=== PATIENT | female | born 1975 | race Caucasian/White ===

== ENCOUNTER 2021-12-08 15:04 | Outpatient (CLI) | payer BC, SELFPAY ==
--- NOTE | 2021-12-08 15:20 | CRLHL7_ITS ---
For Patients: As a result of the Century Cures Act, medical imaging exams and procedure reports are released immediately into your electronic medical record. You may view this report before your referring provider. If you have questions, please contact your health care provider. BILATERAL MAMMOGRAM WITH COMPUTER-AIDED DETECTION AND TOMOSYNTHESIS TECHNIQUE: CC and MLO views were obtained. These mammographic images have been obtained using full-field digital technique. These mammographic images were interpreted with the benefit of computer-aided detection. Breast Tomosynthesis was used in this interpretation. COMPARISON FILM: 10/08/2020, 11/09/2018. FINDINGS: The breasts are heterogeneously dense, which may obscure small masses IMPRESSION: There is no radiographic evidence for malignancy. ASSESSMENT: BI-RADS Category 1: Negative RECOMMENDATION: Routine screening mammogram in 1 year. A lay language report of this examination will be provided to the patient. Dominic Yoo M.D. Diagnostic Radiologist [email or web address] LEANDER/Dictated by: Dominic Yoo MD @ 12/09/2021 8:48:00 AM (Electronically Signed)
== END 2021-12-08 15:05 | disposition home or self-care (01) ==
LOC: MAMMO 15:07
PROVIDERS: Visit Provider Family Medicine
DX: Z12.31 Encounter for screening mammogram for malignant neoplasm of breast (principal); R92.2 Inconclusive mammogram
CPT/HCPCS: 77063; 77067

== ENCOUNTER 2022-04-30 08:13 | Outpatient (CLI) | payer BC, SELFPAY ==
--- OUTSIDE RECORDS SUMMARY | 2022-04-30 08:16 | XMS_ITS | Clinical Summary ---
:1975 Author Organization [facility] [place] [address] Care Team Providers Name Role Phone Pcp, No Primary Care Provider Unavailable Allergies Not on File Medications Not on file Active Problems Not on file Social History Tobacco Use Types Packs/Day Years Used Date Never Assessed Sex Assigned at Date Recorded Not on file Plan of Treatment Not on file Results Not on filefrom Last 3 Months Insurance Payer Benefit Plan / Subscriber ID Effective Dates Phone Addre ss Type Group BLUE CROSS BLUE CROSS OF [id number] 2012-Present [address] [address] [place] [address] PREFERRED ONE PREFERRED [id number] Effective for [address] [place] [address] [employer] Employer ATTN [employer] (Home) [address] [place], [place] [address] Care Teams Color Control Operator Relationship Specialty Start Date End Date Pcp, No PCP - General 01/16/10 .
--- OUTSIDE RECORDS SUMMARY | 2022-04-30 08:16 | XMS_ITS | Encounter Summary ---
:1975 Author Organization [facility] Address [address] [place] [address] Care Team Providers Name Role Phone Unavailable Primary Care Provider Unavailable Reason for Visit Reason Onset Date Comments Patient Request 02/22/2008 question Infertililty 02/22/2008 Encounter Details Date Type Department Care Team Description 02/22/2008 Telephone [facility] Richard Thomson, Patient Request [facility] (question); Infertililty [address] 131 [address] [place] [address] [phone] Social History Tobacco Use Types Packs/Day Years Used Date Smoking Tobacco: Never Assessed Sex Assigned at Date Recorded Not on file documented as of this encounter Miscellaneous Notes Telephone Encounter - Richard Thomson - 02/23/2008 11:48 AM CDT I spoke w the pt. She [facility] and has resolved her concerns. RICHARD THOMSON MD Telephone Encounter - Pat Quiñones - 02/22/2008 4:30 PM CDT Pt is currently udergoing IVF and is on clomid. Pt wanting to know if MD would monitor for this month as pt not happy with infertinily clinic in large mess with billing. Pt would likeot know if willmonitor for this cycle. Pt states she has not seen here yet and records have not been transferred from [facility] yet. Please advise. Pat Quiñones RN documented in this encounter Plan of Treatment Not on filedocumented as of this encounter Visit Diagnoses Not on filedocumented in this encounter
--- OUTSIDE RECORDS SUMMARY | 2022-04-30 08:16 | XMS_ITS | Encounter Summary ---
:1975 Author Organization [place] Address [address] [place] [address]. [place] [address] Care Team Providers Name Role Phone [facility] Primary Care Provide r Encounter Details Date Type Department Care Team Description 12/09/2021 Travel Social History Tobacco Use Types Packs/Day Years Used Date Smoking Tobacco: Never Smokeless Tobacco: Never Sex Assigned at Date Recorded Not on file COVID-19 Exposure Response Date Recorded In the last 10 days, have you been in contact with No / Unsu re 12/09/2021 2:03 PM CDT someone who was confirmed or suspected to have Coronavirus/COVID-19? documented as of this encounter Plan of Treatment Not on filedocumented as of this encounter Visit Diagnoses Not on filedocumented in this encounter Additional Health Concerns Assessment Noted Time PHQ-9 Depression Total Score: 6 12/09/2021 2:49 PM CDT documented as of this encounter Care Teams Lab Intern Relationship Specialty Start Date End Date [facility], [facility] Karen PCP - General 12/09/[address] [facility] [facility] [address] [phone] documented as of this encounter
--- OUTSIDE RECORDS SUMMARY | 2022-04-30 08:16 | XMS_ITS | Clinical Summary ---
:1975 Author Organization [place] Address [address] [place] [address] Care Team Providers Name Role Phone [facility], [facility] [place] Primary Care Provide r Svetlana Morin MD Unavailable Allergies No known active allergies Medications Medication Sig Dispensed Refills Start Date End Date Status losartan (COZAAR) 25 MG Take 50 mg by 0 Active tabletIndications: mouth daily Hypertension hydrochlorothiazide Take 12.5 mg 0 Active (MICROZIDE) 12.5 MG capsule by mouth daily Active Problems No known active problems Immunizations Name Administration Dates Next Due COVID-19 Vaccine 12+ (Pfizer) 05/27/2021 Influenza (intradermal) 05/14/2021 Tdap (Adult) Unspecified Formulation 10/03/2014 Family History Medical History Relation Comments Hypertension Father Hypertension Mother Thyroid Disease Sister Relation Status Comments Father Mother Sister Social History Tobacco Use Types Packs/Day Years Used Date Smoking Tobacco: Never Smokeless Tobacco: Never Sex Assigned at Date Recorded Not on file Last Filed Vital Signs Vital Sign Reading Time Taken Comments Blood Pressure 128/96 12/09/2021 2:09 PM CDT Pulse - - Temperature - - Respiratory Rate - - Oxygen Saturation - - Inhaled Oxygen Concentration - - Weight 88.4 kg (194 lb 12.8 oz) 12/09/2021 2:09 PM CDT Height 177.8 cm (5' 10) 12/09/2021 2:09 PM CDT Body Mass Index 27.95 12/09/2021 2:09 PM CDT Plan of Treatment Health Maintenance Due Date Last Done Comments ADVANCE CARE PLANNING 1975 ANNUAL REVIEW OF HM ORDERS 1974 CT COLONOGRAPHY 1975 FIT 1975 FLEX SIG 1975 HEPATITIS B IMMUNIZATION (1 1974 of 3 - 3-dose series) COLONOSCOPY 1984 HIV SCREENING 1989 HEPATITIS C SCREENING 1992 LIPID 09/17/2019 COVID-19 Vaccine (3 - 07/22/2021 05/27/2021, 08/23/2020 Booster for Millie series) MAMMO SCREENING 10/08/2021 10/08/2020 INFLUENZA VACCINE (#1) 2022 05/14/2021, 05/14/2021, 03/07/2020, Additional history exists YEARLY PREVENTIVE VISIT 12/09/2022 12/09/2021 HPV TEST 06/08/2024 06/08/2019 PAP 06/08/2024 06/08/2019, 06/08/2019 DTAP/TDAP/TD IMMUNIZATION 10/03/2024 10/03/2014, 10/03/2014 , (3 - Td or Tdap) 04/05/2012 COLORECTAL CANCER SCREENING 01/05/2025 FIT-DNA (Cologuard) 01/05/2025 01/05/2022 PHQ-2 (once per calendar Completed 12/09/2021, 12/09/2021 year) IPV IMMUNIZATION Aged Out No longer eligi ble based on patient 's age to complete this topic MENINGITIS IMMUNIZATION Aged Out No longe r eligible based on patient 's age to complete this topic Pneumococcal Vaccine: Aged Out No longer eligible Pediatrics (0 to 5 Years) based on patient's age and At-Risk Patients (6 to to co mplete this topic 64 Years) Insurance Payer Benefit Plan / Subscriber ID Effective Dates Phone Addre ss Type Group BCBS [place] [id number] 2012-Present [phone] [address] [address] [place] [address] Care Teams Ancient Art Curator Relationship Specialty Start Date End Date Clinic, [facility] - General 12/09/21 Women [place] [address] [address] [phone] Svetlana Morin MD Assigned OBGYN Provider 12/13/21 [address] [facility] [address] [place] [phone]
--- OUTSIDE RECORDS SUMMARY | 2022-04-30 08:16 | XMS_ITS | Encounter Summary ---
:1975 Author Organization [place] Address [address] [place] [address]. [place] [address] Care Team Providers Name Role Phone [facility], [facility] [place] Primary Care Provide r Reason for Visit Reason Comments Physical Encounter Details Date Type Department Care Team Description 12/09/2021 Office Visit [facility] Svetlana Morin MD Encounter for well woman exam with jimy riggs gynecological exam (Primary Dx); [facility] [address] [facility] Screen for colon cancer [place] [phone] [place] [address] [address] (Work) [place] [address] Social History Tobacco Use Types Packs/Day Years Used Date Smoking Tobacco: Never Smokeless Tobacco: Never Sex Assigned at Date Recorded Not on file COVID-19 Exposure Response Date Recorded In the last 10 days, have you been in contact with No / Unsu re 12/09/2021 2:03 PM CDT someone who was confirmed or suspected to have Coronavirus/COVID-19? documented as of this encounter Last Filed Vital Signs Vital Sign Reading [...] Mass Index 27.95 12/09/2021 2:09 PM CDT documented in this encounter Progress Notes Svetlana Morin MD - 12/09/2021 2:15 PM CDT Terri is a 46 year old No obstetric history on file. female who presents for annual exam. Besides routine health maintenance, she has no other health concerns today . HPI: The [facility] She has no concerns today. GYNECOLOGIC HISTORY: Patient's last menstrual period was 11/27/2021 (exact date). Regular menses? yes Menses every 23-28 days. Length of menses: 3 -5 days Her current contraception method is: vasectomy. She reports that she has never smoked. She has never used smokeless tobacco. Patient is sexually active. STD testing offered? Declined Last PHQ-9 score on record = PHQ-9 SCORE 12/09/2021 PHQ-9 Total Score 6 Last GAD7 score on record = DALE-7 SCORE 12/09/2021 Total Score 8 Alcohol Score = 1 HEALTH MAINTENANCE: Cholesterol: January 2021 Last Mammo: 12/09/21, Result: waiting resultsl, Next Mammo: next 2022 Pap:3 yrs ago NILM Colonoscopy: Has not had one Result: Not applicable, Next Colonoscopy: Due at 44 years. Dexa: N/A Health maintenance updated: yes HISTORY: OB History No obstetric history on file. There is no problem list on file for this patient. No past surgical history on file. Social History Tobacco Use ??? Smoking status: Never Smoker ??? Smokeless tobacco: Never Used Substance Use Topics ??? Alcohol use: Not on file Current Outpatient Medications Medication Sig ??? hydrochlorothiazide (MICROZIDE) 12.5 MG capsule Take 12.5 mg by mouth daily ??? losartan (COZAAR) 25 MG tablet Take 50 mg by mouth daily No current facility-administered medications for this visit. No Known Allergies Past medical, surgical, social and family histories were reviewed and updated in [employer]. ROS: 12 point review of systems negative other than symptoms noted below or in the HPI. No urinary frequency or dysuria, bladder or kidney problems EXAM: BP (!) 128/96 Ht 1.778 m (5' 10) Wt 88.4 kg (194 lb 12.8 oz) LMP 11/27/2021 (Exact Date) No BMI 27.95 kg/m?? BMI: Body mass index is 27.95 kg/m??. PHYSICAL EXAM: Constitutional: Appearance: Well nourished, well developed, alert, in no acute distress Neck: Lymph Nodes: No lymphadenopathy present Thyroid: Gland size normal, nontender, no nodules or masses present on palpation Chest: Respiratory Effort: Breathing unlabored Cardiovascular: Heart: Auscultation: Regular rate, normal rhythm, no murmurs present Breasts: Palpation of Breasts and Axillae: No masses present on palpation, no breast tenderness., Axillary Lymph Nodes: No lymphadenopathy present. and No nodularity, asymmetry or nipple discharge bilaterally. Gastrointestinal: Abdominal Examination: Abdomen nontender to palpation, tone normal without rigidity or guarding, nomasses present, umbilicus without lesions Liver and Spleen: No hepatomegaly present, liver nontender to palpation Hernias: No hernias present Lymphatic: Lymph Nodes: No other lymphadenopathy present Skin: General Inspection: No rashes present, no lesions present, no areas of discoloration Neurologic: Mental Status: Oriented X3. Normal strength and tone, sensory exam grossly normal, mentation intact and speech normal. Psychiatric: Mentation appears normal and affect normal/bright. Pelvic Exam: External Genitalia: Normal appearance for age, no discharge present, no tenderness present, no inflammatory lesions present, color normal Vagina: Normal vaginal vault without central or paravaginal defects, no discharge present, no inflammatory lesions present, no masses present Bladder: Nontender to palpation Urethra: Urethral Body: Urethra palpation normal, urethra structural support normal Urethral Meatus: No erythema or lesions present Cervix: Appearance healthy, no lesions present, nontender to palpation, no bleeding present Uterus: Uterus: firm, normal sized and nontender, midplane in position. Adnexa: No adnexal tenderness present, no adnexal masses present Perineum: Perineum within normal limits, no evidence of trauma, no rashes or skin lesions present Anus: Anus within normal limits, no hemorrhoids present Inguinal Lymph Nodes: No lymphadenopathy present Pubic Hair: Normal pubic hair distribution for age Genitalia and Groin: No rashes present, no lesions present, no areas of discoloration, no masses present COUNSELING: Reviewed preventive health counseling, as reflected in patient instructions Special attention given to: Regular exercise Healthy diet/nutrition (Jazlyn)menopause management Colon Cancer screening BMI: Body mass index is 27.95 kg/m??. Weight management plan: Discussed healthy diet and exercise guidelines ASSESSMENT: 46 year old female with satisfactory annual exam. ICD-10-CM 1. Encounter for well woman exam with routine gynecological exam Z01.419 2. Screen for colon cancer Z12.11 COLOGUARD(EXACT SCIENCES) PLAN: -Patient has signed [facility] from [facility] to obtain past labs and pap results. -Cologuard ordered for colon cancer screening -Mammogram yesterday. Plan follow-up in 1 year for annual or sooner prn. Sevtlana Morin MD documented in this encounter Plan of Treatment Not on filedocumented as of this encounter Procedures Procedure Name Priority Date/Time Associated Diagnosis Comme nts COLOGUARD(EXACT Routine 01/05/2022 7:55 AM Screen for colon Re sults for this SCIENCES) CDT cancer procedure are i n the results section. documented in this encounter Results COLOGUARD(EXACT SCIENCES) (01/05/2022 7:55 AM CDT) [facility] gist Method Time Signature COLOGUARD-ABS Negative Negative 01/10/2022 EXACT SCIENCES TRACT 3:53 AM CDT LABORATORIES (CLIA #:[id number]) Comment: NEGATIVE TEST RESULT. A negative Cologua rd result indicates a low likelihood that a colorectal cancer (CRC) or advanced adenoma (adenomatous polyps with more advanced pre-malignant features) ??is presen t. The chance that a person with a negat radha Cologuard test has a colorectal cancer is less than 1 in 1500 (negative predictive value >99.9%) or has an ??advanced adenoma is less than ??5.3% (negative predictive value 94.7%). These data are based on a prospective cross-sectional study of 10,000 individuals at average risk for colorectal cancer who were screened with both Cologuard and colonoscopy. ( Vale Leon al, N Engl J Med 2014;37 0(14):6264-6947) The normal value (reference range) for this assay is negative. COLOGUARD RE-SCREENING RECOMMENDATION: P eriodic colorectal cancer screening is an important part of preventive healthcare for asymptomatic individuals at average risk for colorectal cancer. ??Following a negative Cologuard result, the [place] n Cancer Society and U.S. Multi-Society Task Force screening guidelines recommend a Cologuard re-screening interval of 3 years. References: [place] Cancer Society Zoila dias for Colorectal Cancer Screening: https://www.cancer.org/cancer/zyuqr-egvrzw-whmbmq/cgseszuvf-piojbuxix-kskjgto/sakina MONTEMAYOR, Josefina PAZ, Daryl MOON, Colorectal Cancer Screenin g: Recommendations for Physicians and Patients from the U.S. Multi-Society Task Force on Colorectal Cancer Screening , Am J Gastroenterology 2017; 112:0895-0127. TEST DESCRIPTION: Composite algorithmic analysis of stool DNA-biomarkers with hemoglobin immunoassay. ?? Quantitative values of individual biomarkers are not reportable and are not associated with indiv idual biomarker result reference ranges. Cologuard is intended for colorectal cancer screening of adults of either sex, 45 years or older, who are at average- risk for colorectal cancer (CRC). Cologuard has been approved for use by the U.S. FD A. The performance of Cologuard was established in a cross sectional study of average-risk adults aged 50-84. Cologuard performance in patients ages 45 to 49 year s was estimated by sub-group analysis of near-age groups. Colonoscopies performed for a positive result may find as the most clinically significant lesion: colorectal cancer [4.0%], advanced adenoma (in cluding sessile serrated polyps greater than or equal to 1cm diameter) [20%] or non- advanced adenoma [31%]; or no colorectal neoplasia [45%]. These estimates are derived from a prospective cross-sectio nal screening study of 10,000 individual s at average risk for colorectal cancer who were screened with both Cologuard and colonoscopy. (Vale Leon al, N Engl J Med 2014;370(14):0627-6318.) Cologuar d may produce a false negative or false positive result (no colorectal cancer or precancerous polyp present at colonoscopy follow up). A negative Cologuard test result does not guarantee the absence of CRC or advanced adenoma (pre-cancer). Th e current Cologuard screening interval is every 3 years. ([place] Cancer Society and U.S. Multi-Society Task Force). Cologuard performance data in a 10,000 patie nt pivotal study using colonoscopy as th e reference method can be accessed at the following location: www.exactZenCard.[employer]/results. Additional description of the Cologuard test process, warnings and precautions can be found at www.colNethubrd.com. Specimen Anatomical Collection Method Collection Time Receive d Time (Source) Location / / Volume Laterality Stool specimen 01/05/2022 7:55 AM 022 2:47 (specimen) CDT PM CDT Svetlana Morin MD LABORATORY Performing Organization Address City/State/[facility] Code Phon e Number [facility] [address] [place] [address] [employer] (CLIA [address] [place] [address] #:[id number]) documented in this encounter Visit Diagnoses Diagnosis Encounter for well woman exam with jimy riggs gynecological exam - Primary Screen for colon cancer Special screening for malignant neoplasm s, colon documented in this encounter Additional Health Concerns Assessment Noted Time PHQ-9 Depression Total Score: 6 12/09/2021 2:49 PM CDT documented as of this encounter Care Teams Mirror Finishing Machine Operator Relationship Specialty Start Date End Date Clinic, [facility] Karen PCP - General 12/09/21 [place] [address] [address] [phone] documented as of this encounter
[2022-04-30 15:39] LABS: TSH With Reflex to FT4* 0.756 uIU/mL (0.270-4.200)
[2022-04-30 15:56] LABS: Hepatitis C Virus Antibody* Negative (Negative)
[2022-04-30 16:12] LABS: Albumin* 4.4 g/dL (3.3-5.0); Chloride* 103 mmol/L (96-114)
[2022-04-30 16:13] LABS: Potassium* 3.8 mmol/L (3.6-5.1); Sodium* 139 mmol/L (135-149)
[2022-04-30 16:15] LABS: Aspartate Amino Transferase* 34 U/L (12-35); Bilirubin Total* 0.7 mg/dL (0.1-1.5); Carbon Dioxide* 29 mmol/L (20-32); Cholesterol* 212 mg/dL (90-199); Total Protein* 7.2 g/dL (6.0-8.3)
[2022-04-30 16:16] LABS: Alanine Aminotransferase* 37 U/L (4-35); Alkaline Phosphatase* 60 U/L (40-150); Blood Urea Nitrogen* 17 mg/dL (5-24); Calcium* 9.3 mg/dL (8.4-10.6); Glucose* 111 mg/dL (60-115); HDL Cholesterol* 52 mg/dL (>=50); LDL Cholesterol Calculated 132 mg/dL (<100); Triglycerides* 139 mg/dL (40-149)
[2022-04-30 16:25] LABS: Creatinine* 0.8 mg/dL (0.5-1.5); Estimated Glomerular Filt Rate 91 ml/min
== END 2022-04-30 08:14 | disposition home or self-care (01) ==
PROVIDERS: PCP Family Medicine; Visit Provider Family Medicine
DX: Z00.00 Encounter for general adult medical examination without abnormal findings (principal); I10 Essential (primary) hypertension; R73.03 Prediabetes; Z13.6 Encounter for screening for cardiovascular disorders; Z11.59 Encounter for screening for other viral diseases; Z83.49 Family history of other endocrine, nutritional and metabolic diseases
CPT/HCPCS: 80053; 80061; 84443; 86803

== ENCOUNTER 2023-05-20 16:20 | Outpatient (CLI) | payer BC, SELFPAY | END 2023-05-20 16:21 | disposition home or self-care (01) | PROVIDERS: PCP Family Medicine; Visit Provider Family Medicine | DX: I10 Essential (primary) hypertension (principal); E28.2 Polycystic ovarian syndrome; N92.0 Excessive and frequent menstruation with regular cycle | CPT/HCPCS: 80053; 80061; 82043; 82570; 84156 ==

== ENCOUNTER 2024-02-09 14:45 | Outpatient (CLI) | payer BC, SELFPAY ==
--- OUTSIDE RECORDS SUMMARY | 2024-02-09 14:47 | XMS_ITS | Clinical Summary ---
Author Organization [place] Address [address] [place] [id number] Care Team Providers Care Passenger Booking Clerk Name Role Phone Svetlana Morin MD Unavailable No Ref-Primary, Physician Primary Care Provider [facility] Unavailabl e Allergies No known active allergies Medications Medication Sig Dispensed Refills Start Date End Date Status losartan (COZAAR) 25 MG tabletIndications: Hypertension Take 50 mg by mouth daily Active hydrochlorothiazid e (MICROZIDE) 12.5 MG capsule Take 12.5 mg by mouth daily Active triamcinolone (NASACORT) 55 MCG/ACT nasal aerosol [place] 2 sprays into both nostrils daily Active ibuprofen (ADVIL/MOTRIN) 800 MG tabletIndications: S/P D&C (status post dilation and curettage) Take 1 tablet (800 mg) by mouth every 6 hours as needed for other (mild and/or inflammatory pain) 30 tablet 03/25/2023 Active acetaminophen (TYLENOL) 325 MG tabletIndications: S/P D&C (status post dilation and curettage) Take 3 tablets (975 mg) by mouth every 6 hours as needed for mild pain 50 tablet 03/25/2023 Active Active Problems No known active problems Immunizations Name Administration Dates Next Due COVID-19 MONOVALENT 12+ (Pfizer) 01/06/2022,05/01 Influenza (intradermal) 05/14/2021 Influenza Vaccine >6 months,quad, PF ,05/14/2021,03/07/2020,2018,04/19/2018,04/28/2017,05/13/2016,1 TDAP (Adacel,Boostrix) 10/03/2014,04/05/2012 Tdap (Adult) Unspecified Formulation 10/03/2014 Family History Medical History Relation Comments Hypertension Father Hypertension Mother Thyroid Disease Sister Relation Status Comments Father Mother Sister Social History Tobacco Use Types Packs/Day Years Used Date Smoking Tobacco: Never Smokeless Tobacco: Never Tobacco Cessation:Counseling Given: Not Answered Alcohol Use Standard Drinks/Week Comments Yes 0 (1 standard drink = 0.6 oz pur e alcohol) rarely PHQ-2 Answer Date Recorded PHQ-2 Score 1 02/03/2023 Adolescent Education Answer Date Record ed Getting School Help Needed Not on file 02/26 Sex and Gender Information Value Date Recorded Sex Assigned at Not on file Gender Identity Not on file Sexual Orientation Not on file Last Filed Vital Signs Vital Sign Reading Time Taken Comments Blood Pressure 147/95 03/25/2023 11:30 AM CDT Pulse 98 03/25/2023 11:30 AM CDT Temperature 37 ??C (98.6 ??F) 03/25/2023 10:45 AM CDT Respiratory Rate 16 03/25/2023 11:30 AM CDT Oxygen Saturation 94% 03/25/2023 11:30 AM CDT Inhaled Oxygen Concentration - - Weight 92.2 kg (203 lb 4.8 oz) 03/25/2023 7:55 A M CDT Height 177.8 cm (5' 10) 03/25/2023 7:55 AM CDT Body Mass Index 29.17 03/25/2023 7:55 AM CDT Plan of Treatment Health Maintenance Due Date Last Done Comments ADVANCE CARE PLANNING 1974 CT COLONOGRAPHY 1974 FIT 1974 FLEX SIG 1974 GLUCOSE 1974 COLONOSCOPY 1984 HIV SCREENING 1989 HEPATITIS C SCREENING 1992 HEPATITIS B IMMUNIZATION (1 of 3 - 19+ 3-dose series) 1993 LIPID 2014 PHQ-2 (once per calendar year) 2023 02/03/2023, 02/03/2023, 07/10/2022, Additional history exists ANNUAL REVIEW OF HM ORDERS 07/10/2023 07/10/2022 COVID-19 Vaccine ( season) 2024 01/06/2022, 05/27/2021, 08/23/2020 INFLUENZA VACCINE (#1) 2024 2, 05/14/2021, 05/14/2021, Additional history exists YEARLY PREVENTIVE VISIT 02/04/2024 02/03/2023, 12/09 HPV TEST 06/08/2024 06/08/2019, 06/08/2019 PAP 06/08/2024 06/08/2019, 01/2020, 06/08/2019, Additional history exists ZOSTER IMMUNIZATION (1 of 2) 2024 DTAP/TDAP/TD IMMUNIZATION (4 - Td or Tdap) 10/03/2024 10/03/2014, 10/03/2014, 04/05/2012 COLORECTAL CANCER SCREENING 01/05/2025 sDNA (Cologuard) 01/05/2025 01/05/2022, 01/05/2022 MAMMO SCREENING 02/03/2025 02/03/2023, 10/0 05/2021, 10/08/2020 HPV IMMUNIZATION Aged Out No longer e ligible based on patient's age to complete this topic MENINGITIS IMMUNIZATION Aged Out No l onger eligible based on patient's age to complete this topic Pneumococcal Vaccine: Pediatrics (0 to 5 Years) and At-Risk Patients (6 to 64 Years) Aged Out No longer eligible based on patient's age to complete this topic RSV MONOCLONAL ANTIBODY Aged Out No l onger eligible based on patient's age to complete this topic Procedures Procedure Name Priority Date/Time Associated Diagnosis Comments MA SCREENING BILATERAL W/ VIRGILIO Routine 02/03/2023 9:20 AM CDT Visit for screening mammogram COLOGUARD(Airseed SCIENCES) Routine 01/05/2022 7:55 AM CDT Screen for colon cancer ABSTRACT PAP ([facility] EXTERNAL RESULT) Routine 06/08/2019 8:30 AM CUFF FOLDER ABSTRACT HPV (HIM EXTERNAL RESULT) Routine 06/08/2019 8:30 AM CUFF FOLDER from Last 3 Months or Most Recently Relevant to Health Maintenance Results * MA Screen Bilateral w/Virgilio (02/03/2023 9:20 AM CDT) Anatomical Region Laterality Modality Breast Bilateral Mammography Impressions 02/11/2023 11:42 AM CDT IMPRESSION: ACR BI-RADS Category 1: Negative RECOMMENDED FOLLOW-UP: Annual routine screening mammogram The results and recommendations of this examination will be communicated to the patient. Kash Rodrigues MD Narrative 02/11/2023 11:42 AM CDT BILATERAL FULL FIELD DIGITAL SCREENING MAMMOGRAM WITH TOMOSYNTHESIS Performed on: 02/03/23 Compared to: 12/08/2021 and 11/09/2018 Technique: ??This study was evaluated with the assistance of Computer-Aided Detection. ??Breast Tomosynthesis was used in interpretation. Findings: The breasts are heterogeneously dense, which may obscure small masses. ??There is no radiographic evidence of malignancy. Svetlana Morin MD IMG MAMMOGRAPHY [place]AN * COLOGUARD(Radialpoint) (01/05/2022 7:55 AM CDT) COLOGUARD-ABSTRACT Negative Negative 2021 3:53 AM CDT [facility] (CLIA #:[id number]) Comment: NEGATIVE TEST RESULT. A negative Cologuard result indicates a low likelihood that a colorectal cancer (CRC) or advanced adenoma (adenomatous polyps with more advanced pre-malignant features) ??is present. The chance that a person with a negative Cologuard test has a colorectal cancer is less than 1 in 1500 (negative predictive value >99.9%) or has an ??advanced adenoma is less than ??5.3% (negative predictive value 94.7%). These data are based on a prospective cross-sectional study of 10,000 individuals at average risk for colorectal cancer who were screened with both Cologuard and colonoscopy. (Vale Leon al, N Engl J Med 2014;370(14):1286- 1297) The normal value (reference range) for this assay is negative. COLOGUARD RE-SCREENING RECOMMENDATION: Periodic colorectal cancer screening is an important part of preventive healthcare for asymptomatic individuals at average risk for colorectal cancer. ??Following a negative Cologuard result, the [place] Cancer Society and U.S. Multi-Society Task Force screening guidelines recommend a Cologuard re-screening interval of 3 years. References: [place] [employer] Guideline for Colorectal Cancer Screening: https://www.cancer.org/cancer/segip-xzwfmg-efhzqv/vjossumhp-gltnjkfjf-bjwzlfo/ac s-rec ommendations.html.; Sim DK, Josefina PAZ, Daryl MckeonK, Colorectal Cancer Screening: Recommendations for Physicians and Patients from the U.S. Multi-Society Task Force on Colorectal Cancer Screening , Am J Gastroenterology 2017; 112:2635-4315. TEST DESCRIPTION: Composite algorithmic analysis of stool DNA-biomarkers with hemoglobin immunoassay. ?? Quantitative values of individual biomarkers are not reportable and are not associated with individual biomarker result reference ranges. Cologuard is intended for colorectal cancer screening of adults of either sex, 45 years or older, who are at average-risk for colorectal cancer (CRC). Cologuard has been approved for use by the U.S. FDA. The performance of Cologuard was established in a cross sectional study of average-risk adults aged 50-84. Cologuard performance in patients ages 45 to 49 years was estimated by sub-group analysis of near-age groups. Colonoscopies performed for a positive result may find as the most clinically significant lesion: colorectal cancer [4.0%], advanced adenoma (including sessile serrated polyps greater than or equal to 1cm diameter) [20%] or non- advanced adenoma [31%]; or no colorectal neoplasia [45%]. These estimates are derived from a prospective cross-sectional screening study of 10,000 individuals at average risk for colorectal cancer who were screened with both Cologuard and colonoscopy. (Vale Leon al, N Engl J Med 2014;370(14):0991-8785.) Cologuard may produce a false negative or false positive result (no colorectal cancer or precancerous polyp present at colonoscopy follow up). A negative Cologuard test result does not guarantee the absence of CRC or advanced adenoma (pre-cancer). The current Cologuard screening interval is every 3 years. ([place] Cancer Society and U.S. Multi-Society Task Force). Cologuard performance data in a 10,000 patient pivotal study using colonoscopy as the reference method can be accessed at the following location: www.InviBox/results. Additional description of the Cologuard test process, warnings and precautions can be found at www.cologuard.com. Stool specimen (specimen) 01/05/2022 7:55 AM CDT 01/06/2022 2:47 PM CDT Svetlana Morin MD LABORATORY Performing Organization Address City/[facility] Co de Phone Number [employer] [address] [phone] [employer] (CLIA #:[id number]) [address] [place] [address] * Abstract HPV (HIM External Result) (06/08/2019 8:30 AM CUFF FOLDER) HPV Abstract See Scanned Document [facility] 06/08/2019 8:30 AM CUFF FOLDER Narrative [facility] - 06/08/2019 8:30 AM CUFF FOLDER See Care Everywhere-[facility] Provider Outside LAB - HIM EXTERNAL R ESULT Performing Organization Address [facility] Co de Phone Number [facility] [address] * Abstract PAP (HIM External Result) (06/08/2019 8:30 AM CUFF FOLDER) PAP-ABSTRACT See Scanned Document [facility] 06/08/2019 8:30 AM CUFF FOLDER Narrative [facility] [employer] [facility] [facility] - 06/08/2019 8:30 AM CUFF FOLDER See Care Everywhere-[facility] Provider Outside LAB - HIM EXTERNAL R ESULT Performing Organization Address City/[facility]/ZIP Co de Phone Number [facility] [address] from Last 3 Months or Most Recently Relevant to Health Maintenance Care Teams Passenger Booking Clerk Relationship Specialty Start Date End Date No Ref-Primary, Physician PCP - General 02/03/23 Svetlana Morin MD [address] [facility] [address] [place] [address] Assigned OBGYN Provider 12/13/21 [facility] - [facility] [address] [place] [address] Assigned PCP 09/21/23
--- OUTSIDE RECORDS SUMMARY | 2024-02-09 14:47 | XMS_ITS | Clinical Summary ---
Author Organization [employer] [facility] Address [place], [place] [address] Care Team Providers Care Building Insulation Supervisor Name Role Phone Pcp, No Primary Care Provider Unavailabl e Social History Tobacco Use Types Packs/Day Years Used Date Smoking Tobacco: Never Assessed Sex and Gender Information Value Date Recorded Sex Assigned at Not on file Gender Identity Not on file Sexual Orientation Not on file Plan of Treatment Not on file Care Teams Building Insulation Supervisor Relationship Specialty Start Date End Date Pcp, No . PCP - General 01/16/10
--- OUTSIDE RECORDS SUMMARY | 2024-02-09 14:47 | XMS_ITS | Referral Summary ---
Author Organization [place] Address [address] [place] [address] Care Team Providers Care Knowledge Management Consultant Name Role Phone Svetlana Morin MD Unavailable No Ref-Primary, Physician Primary Care Provider [facility] Unavailabl e Allergies No known active allergies Medications Medication Sig Dispensed Refills Start Date End Date Status losartan (COZAAR) 25 MG tabletIndications: Hypertension Take 50 mg by mouth daily Active hydrochlorothiazid e (MICROZIDE) 12.5 MG capsule Take 12.5 mg by mouth daily Active triamcinolone (NASACORT) 55 MCG/ACT nasal aerosol [place] 2 sprays into both nostrils daily Active [...] (Adacel,Boostrix) 10/03/2014,04/05/2012 Tdap (Adult) Unspecified Formulation 10/03/2014 Social History Tobacco Use Types Packs/Day Years [...] 03/25/2023 7:55 AM CDT Plan of Treatment Not on file Procedures Procedure Name Priority Date/Time Associated Diagnosis Comments MA SCREENING BILATERAL W/ VIRGILIO Routine 02/03/2023 9:20 AM CDT Visit for screening mammogram COLOGUARD(Shahiya SCIENCES) Routine 01/05/2022 7:55 AM CDT Screen for colon cancer ABSTRACT PAP (HIM EXTERNAL RESULT) Routine 06/08/2019 8:30 AM TELESCOPE OPERATOR ABSTRACT HPV (HIM EXTERNAL RESULT) Routine 06/08/2019 8:30 AM TELESCOPE OPERATOR from Last 3 Months or Most Recently [...] of malignancy. Svetlana Morin MD IMG MAMMOGRAPHY RADHAE MARZENA * COLOGUARD(Examify) (01/05/2022 7:55 AM CDT) COLOGUARD-ABSTRACT Negative Negative 2021 3:53 AM CDT [facility] (CLIA #:[id number]) Comment: NEGATIVE TEST RESULT. A negative Cologuard [...] cancer. ??Following a negative Cologuard result, the [place] Cancer Society and U.S. Multi-Society Task Force screening guidelines recommend a Cologuard re-screening interval of 3 years. References: [place] Cancer Society Guideline for Colorectal Cancer Screening: https://www.cancer.org/cancer/eflji-jualkc-kahxnm/yrxwrqezh-jwythnygb-pueumjq/ac s-rec ommendations.html.; Sim DK, Josefina PAZ, Daryl MckeonK, Colorectal Cancer Screening: Recommendations for Physicians and Patients from the U.S. Multi-Society Task Force on Colorectal Cancer Screening , Am J Gastroenterology 2017; 112:2335-8215. TEST DESCRIPTION: Composite algorithmic analysis of stool [...] (Vale Leon al, N Engl J Med 2014;370(14):2881-0382.) Cologuard may produce a false negative or false positive result (no colorectal cancer or precancerous polyp present at colonoscopy follow up). A negative Cologuard test result does not guarantee the absence of CRC or advanced adenoma (pre-cancer). The current Cologuard screening interval is every 3 years. ([place] Cancer Society and U.S. Multi-Society Task Force). Cologuard performance data in a 10,000 patient pivotal study using colonoscopy as the reference method can be accessed at the following location: www.Emergent One.LLUSTRE/results. Additional description of the Cologuard test process, warnings and precautions can be found at www.cologAddonTVrd.com. Stool specimen (specimen) 01/05/2022 7:55 AM CDT 01/06/2022 2:47 PM CDT Svetlana Morin MD LABORATORY Performing Organization Address City/[facility] Co de Phone Number [facility] [address] [phone] [facility] (CLIA #:[id number]) [address] [place] [address] * Abstract HPV (HIM External Result) (06/08/2019 8:30 AM TELESCOPE OPERATOR) HPV Abstract See Scanned Document [facility] 06/08/2019 8:30 AM TELESCOPE OPERATOR Narrative [facility] [employer] - 06/08/2019 8:30 AM TELESCOPE OPERATOR See Care Everywhere-[facility] Provider Outside LAB - HIM EXTERNAL R ESULT Performing Organization Address [facility] Co de Phone Number [facility] [address] * Abstract PAP (HIM External Result) (06/08/2019 8:30 AM TELESCOPE OPERATOR) PAP-ABSTRACT See Scanned Document [facility] 06/08/2019 8:30 AM TELESCOPE OPERATOR Narrative [facility] - 06/08/2019 8:30 AM TELESCOPE OPERATOR See Care Everywhere-[facility] Provider Outside LAB - HIM EXTERNAL R ESULT Performing Organization Address City/[facility] Co de Phone Number [facility] [address] from Last 3 Months or Most Recently Relevant to Health Maintenance Care Teams Knowledge Management Consultant Relationship Specialty Start Date End Date No Ref-Primary, Physician PCP - General 02/03/23 Svetlana Morin MD [address] [address] Assigned OBGYN Provider 12/13/21 [facility] [address] [place] [address] Assigned PCP 09/21/23
--- NOTE | 2024-02-09 15:00 | CRLHL7_ITS ---
For Patients: As a result of the Century Cures Act, medical imaging exams and procedure reports are released immediately into your electronic medical record. You may view this report before your referring provider. If you have questions, please contact your health care provider. BILATERAL SCREENING MAMMOGRAM WITH COMPUTER-AIDED DETECTION AND TOMOSYNTHESIS TECHNIQUE: CC and MLO views were obtained. These mammographic images have been obtained using full-field digital technique. These mammographic images were interpreted with the benefit of computer-aided detection. Breast Tomosynthesis was used in this interpretation. COMPARISON FILM: 12/08/21, 10/08/20, 11/09/18. FINDINGS: The breasts are heterogeneously dense, which may obscure small masses. IMPRESSION: There is no radiographic evidence for malignancy. ASSESSMENT: BI-RADS Category 2: Benign RECOMMENDATION: Routine screening mammogram in 1 year. A lay language report of this examination will be provided to the patient. Dominic Yoo M.D. Diagnostic Radiologist [email or web address] SP/Dictated by: Dominic Yoo MD @ 02/10/2024 8:26:00 AM (Electronically Signed)
== END 2024-02-09 14:46 | disposition home or self-care (01) ==
LOC: MAMMO 14:46
PROVIDERS: PCP Family Medicine; Visit Provider Family Medicine
DX: Z12.31 Encounter for screening mammogram for malignant neoplasm of breast (principal); R92.2 Inconclusive mammogram
CPT/HCPCS: 77063; 77067

== ENCOUNTER 2024-03-14 09:52 | Outpatient (CLI) | payer BC, SELFPAY | END 2024-03-14 09:53 | disposition home or self-care (01) | PROVIDERS: PCP Family Medicine; Visit Provider Family Medicine | DX: Z00.00 Encounter for general adult medical examination without abnormal findings (principal); R63.5 Abnormal weight gain; I10 Essential (primary) hypertension; N92.0 Excessive and frequent menstruation with regular cycle; F41.9 Anxiety disorder, unspecified; Z13.6 Encounter for screening for cardiovascular disorders; Z13.1 Encounter for screening for diabetes mellitus | CPT/HCPCS: 80053; 80061; 82043; 82570; 84443 ==

== ENCOUNTER 2024-03-28 09:01 | Outpatient (CLI) | payer BC, SELFPAY ==
--- OUTSIDE RECORDS SUMMARY | 2024-03-28 09:04 | XMS_ITS | Referral Summary ---
Author Organization [place] Address [address] [place] [address] Care Team Providers Care Gas Dispenser Name Role Phone Svetlana Morin MD Unavailable No Ref-Primary, Physician Primary Care Provider [facility] Unavailabl e Allergies No known active allergies Medications losartan (COZAAR) 25 MG tabletIndicatio ns:Hypertension Take 50 mg by mouth daily Active hydrochlorothia zide (MICROZIDE) 12.5 MG capsule Take 12.5 mg by mouth daily Active triamcinolone (NASACORT) 55 MCG/ACT nasal aerosol [place] 2 sprays into both nostrils daily Active ibuprofen (ADVIL/MOTRIN) 800 MG tabletIndicatio ns:S/P D&C (status post dilation and curettage) Take 1 tablet (800 mg) by mouth every 6 hours as needed for other (mild and/or inflammatory pain) 30 tablet 3 Active acetaminophen (TYLENOL) 325 MG tabletIndicatio ns:S/P D&C (status post dilation and curettage) Take 3 tablets (975 mg) by mouth every 6 hours as needed for mild pain 50 tablet 3 Active Active Problems No known active problems [...] School Help Needed Not on file 02/26 Comments No Sex and Gender Information Value Date Recorded Sex Assigned at Not on file Legal Sex Female 4:51 AM CONTINUING EDUCATION DEAN Gender Identity Not on file Sexual Orientation [...] 9:20 AM CDT Visit for screening mammogram COLOGUARD(EXACT SCIENCES) Routine 01/05/2022 7:55 AM CDT Screen for colon cancer ABSTRACT PAP (HIM EXTERNAL RESULT) Routine 06/08/2019 8:30 AM CONTINUING EDUCATION DEAN ABSTRACT HPV (HIM EXTERNAL RESULT) Routine 06/08/2019 8:30 AM CONTINUING EDUCATION DEAN from Last 3 Months or Most Recently [...] ??There is no radiographic evidence of malignancy. us Svetlana Morin MD IMG MAMMOGRAPHY ORDERABLES Final Result * COLOGUARD(CoAlign) (01/05/2022 7:55 AM CDT) COLOGUARD-ABSTRACT Negative Negative 2021 3:53 AM CDT [employer] (CLIA #:[id number]) Comment: NEGATIVE TEST RESULT. A negative Cologuard [...] cancer. ??Following a negative Cologuard result, the [place] [employer] Society and U.S. Multi-Society Task Force screening guidelines recommend a Cologuard re-screening interval of 3 years. References: [place] [employer] Guideline for Colorectal Cancer Screening: https://www.cancer.org/cancer/ndhch-oeejpd-vcbphz/rlyjmnhjm-fqtxtwszx-yooqauw/ac s-rec ommendations.html.; Sim DK, Josefina PAZ, Daryl MckeonK, Colorectal Cancer Screening: Recommendations for Physicians and Patients from the U.S. Multi-Society Task Force on Colorectal Cancer Screening , Am J Gastroenterology 2017; 112:4393-6951. TEST DESCRIPTION: Composite algorithmic analysis of stool [...] (Vale Leon al, N Engl J Med 2014;370(14):8447-0146.) Cologuard may produce a false negative or false positive result (no colorectal cancer or precancerous polyp present at colonoscopy follow up). A negative Cologuard test result does not guarantee the absence of CRC or advanced adenoma (pre-cancer). The current Cologuard screening interval is every 3 years. ([place] Cancer Society and U.S. Multi-Society Task Force). Cologuard performance data in a 10,000 patient pivotal study using colonoscopy as the reference method can be accessed at the following location: www.E[employer]horia App.Ecowell/results. Additional description of the Cologuard test process, warnings and precautions can be found at www.cologMineralTreerd.com. Stool specimen (specimen) 01/05/2022 7:55 AM CDT 01/06/2022 2:47 PM CDT us Svetlana Morin MD LABORATORY Final Result Performing Organization Address City/[facility]/ZIP Co de Phone Number [employer] [address] [phone] [employer] (CLIA #:[id number]) [address] [place] [address] * Abstract HPV (HIM External Result) (06/08/2019 8:30 AM CONTINUING EDUCATION DEAN) HPV Abstract See Scanned Document [facility]ORAT[facility] 06/08/2019 8:30 AM CONTINUING EDUCATION DEAN Narrative [facility] - 06/08/2019 8:30 AM CONTINUING EDUCATION DEAN See Care Everywhere-[facility] us Provider Outside LAB - HIM EXTERNAL RESULT Final Result Performing Organization Address City/[facility]/ZIP Co de Phone Number [facility] [address] * Abstract PAP (HIM External Result) (06/08/2019 8:30 AM CONTINUING EDUCATION DEAN) PAP-ABSTRACT See Scanned Document [facility] 06/08/2019 8:30 AM CONTINUING EDUCATION DEAN Narrative [facility] - 06/08/2019 8:30 AM CONTINUING EDUCATION DEAN See Care Everywhere-[facility] us Provider Outside LAB - HIM EXTERNAL RESULT Final Result Performing Organization Address City/[facility]/ZIP Co de Phone Number [facility] [address] from Last 3 Months or Most Recently Relevant to Health Maintenance Insurance BCBS OUT OF STATE BCBS OUT OF STATE Care Teams Gas Dispenser Relationship Specialty Start Date End Date No Ref-Primary, Physician PCP - General 02/03/23 Svetlana Morin MD [address] [facility] [address] [address] Assigned OBGYN Provider 12/13/21 [facility] [address] [address] [place] [address] Assigned PCP 09/21/23
--- OUTSIDE RECORDS SUMMARY | 2024-03-28 09:04 | XMS_ITS | Clinical Summary ---
Author Organization [place] Address [address] [place] [address] Care Team Providers Care Mainspring Former Arbor End Name Role Phone Svetlana Morin MD Unavailable No Ref-Primary, Physician Primary Care Provider [facility] Unavailabl e Allergies No known active allergies Medications losartan (COZAAR) 25 MG tabletIndicatio ns:Hypertension Take 50 mg by mouth daily Active hydrochlorothia zide (MICROZIDE) 12.5 MG capsule Take 12.5 mg by mouth daily Active triamcinolone (NASACORT) 55 MCG/ACT nasal aerosol [place] 2 sprays into both nostrils daily Active [...] on file Legal Sex Female 4:51 AM MANAGER WELDING Gender Identity Not on file Sexual Orientation [...] 01/06/2022, 05/27/2021, 08/23/2020 INFLUENZA VACCINE (#1) 2024 , 05/14/2021, 05/14/2021, Additional history exists YEARLY PREVENTIVE VISIT 02/04/2024 02/03/2023, 12/09 HPV TEST 06/08/2024 06/08/2019, 06/08/2019 PAP 06/08/2024 06/08/2019, 01/2020, 06/08/2019, Additional history exists ZOSTER IMMUNIZATION (1 of 2) 2024 DTAP/TDAP/TD IMMUNIZATION (4 - Td or Tdap) 10/03/2024 10/03/2014, 10/03/2014, 04/05/2012 COLORECTAL CANCER SCREENING 01/05/2025 sDNA (Cologuard) 01/05/2025 01/05/2022, 01/05/2022 MAMMO SCREENING 02/03/2025 02/03/2023, 1005/2021, 10/08/2020 RSV VACCINE (1 - 1-dose 75+ series) 2049 HPV IMMUNIZATION Aged Out No longer e [...] 9:20 AM CDT Visit for screening mammogram COLOGUARD([employer]ENCES) Routine 01/05/2022 7:55 AM CDT Screen for colon cancer ABSTRACT PAP (HIM EXTERNAL RESULT) Routine 06/08/2019 8:30 AM MANAGER WELDING ABSTRACT HPV (HIM EXTERNAL RESULT) Routine 06/08/2019 8:30 AM MANAGER WELDING from Last 3 Months or Most Recently [...] evidence of malignancy. us Svetlana Morin MD IM MAMMOGRAPHY ORDERABLES Final Result * COLOGUARD(ISORG) (01/05/2022 7:55 AM CDT) COLOGUARD-ABSTRACT Negative Negative 2021 3:53 AM CDT [facility] (CLIA #:[id number]) Comment: NEGATIVE TEST RESULT. A negative Cologuard [...] cancer. ??Following a negative Cologuard result, the [place] Cancer Society and U.S. Multi-Society Task Force screening guidelines recommend a Cologuard re-screening interval of 3 years. References: [place] Cancer Society Guideline for Colorectal Cancer Screening: https://www.cancer.org/cancer/xeygc-kdzzoi-pmmwta/xlvwtixsg-fmmqwzpuf-dbrhzrh/ac s-rec ommendations.html.; Sim DK, Josefina PAZ, Daryl MckeonK, Colorectal Cancer Screening: Recommendations for Physicians and Patients from the U.S. Multi-Society Task Force on Colorectal Cancer Screening , Am J Gastroenterology 2017; 112:6496-5492. TEST DESCRIPTION: Composite algorithmic analysis of stool [...] screened with both Cologuard and colonoscopy. (Vale Durán, N Engl J Med 2014;370(14):5275-8623.) Cologuard may produce a false negative or false positive result (no colorectal cancer or precancerous polyp present at colonoscopy follow up). A negative Cologuard test result does not guarantee the absence of CRC or advanced adenoma (pre-cancer). The current Cologuard screening interval is every 3 years. ([place] Cancer Society and U.S. Multi-Society Task Force). Cologuard performance data in a 10,000 patient pivotal study using colonoscopy as the reference method can be accessed at the following location: www.[employer]/results. Additional description of the Cologuard test process, warnings and precautions can be found at www.[email or web address].com. Stool specimen (specimen) 01/05/2022 7:55 AM CDT 01/06/2022 2:47 PM CDT Svetlana Morin MD LABORATORY Final Result Performing Organization Address [facility] Co de Phone Number [facility] [address] [phone] [facility] (CLIA #:[id number]) [address] [place] [address] * Abstract HPV (HIM External Result) (06/08/2019 8:30 AM MANAGER WELDING) HPV Abstract See Scanned Document [facility] Clutch [facility]AT[facility] 06/08/2019 8:30 AM MANAGER WELDING Narrative [facility] [employer] AS-CENTRAL LABORATORY - 06/08/2019 8:30 AM MANAGER WELDING See Care [facility]where[facility] Provider Outside LAB - HIM EXTERNAL RESULT Final Result Performing Organization Address City/[facility] Co de Phone Number [facility] LAB-CENTRAL LABORATORY [address] [place] [address], [facility] [place] * Abstract PAP (HIM External Result) (06/08/2019 8:30 AM MANAGER WELDING) PAP-ABSTRACT See Scanned Document [facility] 06/08/2019 8:30 AM MANAGER WELDING Narrative [facility] LAB-CENTRAL LABORATORY - 06/08/2019 8:30 AM MANAGER WELDING See Care Everywhere-[facility] us Provider Outside LAB - HIM EXTERNAL RESULT Final Result [facility] LAB-CENTRAL LABORATORY [address] [place] [address], [facility] [place] from Last 3 Months or Most Recently Relevant to Health Maintenance Insurance BCBS OUT OF STATE BCBS OUT OF STATE Care Teams Mainspring Former Arbor End Relationship Specialty Start Date End Date No Ref-Primary, Physician PCP - General 02/03/23 Svetlana Morin MD [address] [facility] [address] [place] [address] Assigned OBGYN Provider 12/13/21 [facility] [address] [place] [address] Assigned PCP 09/21/23
--- OUTSIDE RECORDS SUMMARY | 2024-03-28 09:04 | XMS_ITS | Clinical Summary ---
Author Organization [facility] Address [place], [place] [address] Care Team Providers Care Supervisor Cigarette Making Department Name Role Phone Pcp, No Primary Care Provider Unavailabl e Social History Tobacco Use Types Packs/Day Years Used Date Smoking Tobacco: Never Assessed Sex and Gender Information Value Date Recorded Sex Assigned at Not on file Gender Identity Not on file Sexual Orientation Not on file Plan of Treatment Not on file Care Teams Supervisor Cigarette Making Department Relationship Specialty Start Date End Date Pcp, No . PCP - General 01/16/10
--- NOTE | 2024-03-28 09:15 | CRLHL7_ITS ---
For Patients: As a result of the Century Cures Act, medical imaging exams and procedure reports are released immediately into your electronic medical record. You may view this report before your referring provider. If you have questions, please contact your health care provider. INDICATION: Abnormal lab values COMPARISON: 10/09/2010 TECHNIQUE: Real time espitia scale imaging and color Doppler analysis was performed of the right upper quadrant. FINDINGS: The patient`s liver is of normal size and has diffusely increased echogenicity with patchy areas of focal fatty sparing. There is a normal appearance of the hepatic IVC and proximal abdominal aorta. There is no evidence of ascites. The gallbladder is of normal size and there is no evidence of intraluminal stones or sludge. The gallbladder wall measures 2.0 mm in thickness. The common bile duct is of normal size and measures 2.7 mm in diameter at the level of the amelia hepatis. The pancreas appears normal. There is no evidence of a stone or hydronephrosis within the right kidney. The right kidney measures 10.6 cm in length. IMPRESSION: Moderately severe diffuse hepatic steatosis. Dictated by Dominic Yoo MD @ 03/28/2024 11:55:17 AM (Electronically Signed)
--- NOTE | 2024-03-28 10:00 | CRLHL7_ITS ---
For Patients: As a result of the Century Cures Act, medical imaging exams and procedure reports are released immediately into your electronic medical record. You may view this report before your referring provider. If you have questions, please contact your health care provider. INDICATION: Primary HTN TECHNIQUE: Grayscale, color Doppler and power Doppler evaluation of the kidneys and renal arteries performed. COMPARISON: Ultrasound abdomen same day FINDINGS: BILATERAL RENAL ARTERY DUPLEX ULTRASOUND ABDOMINAL AORTA: Peak systolic velocity = 106 cm/s. No aortic aneurysm. RIGHT KIDNEY: 10.9 cm in length. There is no hydronephrosis. Peak systolic velocity = 158 cm/second Renal artery to aortic peak systolic velocity ratio = 1.48 Resistive indices: 0.6 Renal vein = patent LEFT KIDNEY: 11.3 cm in length. There is no hydronephrosis. Peak systolic velocity = 171 cm/second Renal artery to aortic peak systolic velocity ratio = 1.72 Resistive indices: 0.5-0.6 Renal vein = patent IMPRESSION: No evidence of significant renal artery stenosis. Dictated by Dominic Yoo MD @ 03/28/2024 12:00:58 PM (Electronically Signed)
== END 2024-03-28 09:02 | disposition home or self-care (01) ==
LOC: US 09:01
PROVIDERS: PCP Family Medicine; Visit Provider Family Medicine
DX: R79.89 Other specified abnormal findings of blood chemistry (principal); K76.0 Fatty (change of) liver, not elsewhere classified; Z83.79 Family history of other diseases of the digestive system
CPT/HCPCS: 76705; 76775; 93975

== ENCOUNTER 2024-04-24 14:35 | Outpatient (CLI) | payer BC, SELFPAY ==
--- OUTSIDE RECORDS SUMMARY | 2024-04-24 14:39 | XMS_ITS | Clinical Summary ---
Author Organization [employer] [facility] Address [place], [place] [address] Care Team Providers Care Warhead Maintenance Specialist Name Role Phone Pcp, No Primary Care Provider Unavailabl e Social History Tobacco Use Types Packs/Day Years Used Date Smoking Tobacco: Never Assessed Sex and Gender Information Value Date Recorded Sex Assigned at Not on file Gender Identity Not on file Sexual Orientation Not on file Plan of Treatment Not on file Care Teams Warhead Maintenance Specialist Relationship Specialty Start Date End Date Pcp, No . PCP - General 01/16/10
--- OUTSIDE RECORDS SUMMARY | 2024-04-24 14:39 | XMS_ITS | Referral Summary ---
Author Organization [place] Address [address] [place] [address] Care Team Providers Care Cnc Specialist Name Role Phone Svetlana Morin MD Unavailable No Ref-Primary, Physician Primary Care Provider [facility] Unavailabl e Allergies No known active allergies Medications losartan (COZAAR) 25 MG tabletIndicatio ns:Hypertension Take 50 mg by mouth daily Active hydrochlorothia zide (MICROZIDE) 12.5 MG capsule Take 12.5 mg by mouth daily Active triamcinolone (NASACORT) 55 MCG/ACT nasal aerosol [place] 2 sprays into both nostrils daily Active [...] on file Legal Sex Female 4:51 AM BUSINESS TRAINER Gender Identity Not on file Sexual Orientation Not on file Last Filed Vital Signs Vital Sign Reading Time Taken Comments Blood Pressure 147/95 03/25/2023 11:30 AM CDT Pulse 98 03/25/2023 11:30 AM CDT Temperature 37 C (98.6 F) 03/25/2023 10:45 AM CDT Respiratory Rate 16 [...] (HIM EXTERNAL RESULT) Routine 06/08/2019 8:30 AM BUSINESS TRAINER ABSTRACT HPV (HIM EXTERNAL RESULT) Routine 06/08/2019 8:30 AM BUSINESS TRAINER from Last 3 Months or Most Recently [...] 02/03/23 Compared to: 12/08/2021 and 11/09/2018 Technique: This study was evaluated with the assistance of Computer-Aided Detection. Breast Tomosynthesis was used in interpretation. Findings: The breasts are heterogeneously dense, which may obscure small masses. There is no radiographic evidence of malignancy. Svetlana Morin MD IMG MAMMOGRAPHY ORDERABLES Final Result * COLOGUARD([employer]) (01/05/2022 7:55 AM CDT) COLOGUARD-ABSTRACT Negative Negative 2021 3:53 AM CDT [email or web address] (CLIA #:[id number]) Comment: NEGATIVE TEST RESULT. A negative Cologuard result indicates a low likelihood that a colorectal cancer (CRC) or advanced adenoma (adenomatous polyps with more advanced pre-malignant features) is present. The chance that a person with a negative Cologuard test has a colorectal cancer is less than 1 in 1500 (negative predictive value >99.9%) or has an advanced adenoma is less than 5.3% (negative predictive value 94.7%). These data are based on a prospective cross-sectional study of 10,000 individuals at average risk for colorectal cancer who were screened with both Cologuard and colonoscopy. (Vale Durán, N Engl J Med 2014;370(14):5471-4014) The normal value (reference range) for this assay is negative. COLOGUARD RE-SCREENING RECOMMENDATION: Periodic colorectal cancer screening is an important part of preventive healthcare for asymptomatic individuals at average risk for colorectal cancer. Following a negative Cologuard result, the [place] Cancer Society and U.S. Multi-Society Task Force screening guidelines recommend a Cologuard re-screening interval of 3 years. References: [place] Cancer Society Guideline for Colorectal Cancer Screening: https://www.cancer.org/cancer/eczjr-pjrvpk-qltaxb/ccpipeszj-gzldwsqdw-qzewroe/ac s-rec ommendations.html.; Sim DK, Josefina PAZ, Daryl MckeonK, Colorectal Cancer Screening: Recommendations for Physicians and Patients from the U.S. Multi-Society Task Force on Colorectal Cancer Screening , Am J Gastroenterology 2017; 112:6548-7275. TEST DESCRIPTION: Composite algorithmic analysis of stool DNA-biomarkers with hemoglobin immunoassay. Quantitative values of individual biomarkers are not [...] screened with both Cologuard and colonoscopy. (Vale Bentley et al, N Engl J Med 2014;370(14):0449-7168.) Cologuard may produce a false negative or false positive result (no colorectal cancer or precancerous polyp present at colonoscopy follow up). A negative Cologuard test result does not guarantee the absence of CRC or advanced adenoma (pre-cancer). The current Cologuard screening interval is every 3 years. ([place] Cancer Society and U.S. Multi-Society Task Force). Cologuard performance data in a 10,000 patient pivotal study using colonoscopy as the reference method can be accessed at the following location: www.OMNIlife science.[employer]/results. Additional description of the Cologuard test process, warnings and precautions can be found at www.[email or web address].com. Stool specimen (specimen) 01/05/2022 7:55 AM CDT 01/06/2022 2:47 PM CDT us Svetlana Morin MD LABORATORY Final Result Performing Organization Address City/[facility]/ZIP Co de Phone Number [email or web address] [address] [employer] [address] [phone] [email or web address] (CLIA #:[id number]) [address] [place] [address] * Abstract HPV (HIM External Result) (06/08/2019 8:30 AM BUSINESS TRAINER) HPV Abstract See Scanned Document [facility] 06/08/2019 8:30 AM BUSINESS TRAINER Narrative [facility] RewardsPayCENTRAL LABORATORY - 06/08/2019 8:30 AM BUSINESS TRAINER See Care Everywhere-[facility] us Provider Outside LAB - HIM EXTERNAL RESULT Final Result Performing Organization Address [facility]/ZIP Co de Phone Number [facility] RewardsPayCENTRAL LABORATORY [address] * Abstract PAP (HIM External Result) (06/08/2019 8:30 AM BUSINESS TRAINER) PAP-ABSTRACT See Scanned Document [facility] 06/08/2019 8:30 AM BUSINESS TRAINER Narrative [facility] RewardsPayCENTRAL LABORATORY - 06/08/2019 8:30 AM BUSINESS TRAINER See Care Everywhere-[facility] us Provider Outside LAB - HIM EXTERNAL RESULT Final Result Performing Organization Address City/[facility]/ZIP Co de Phone Number [facility] CodingCENTRAL LABORATORY [address] from Last 3 Months or Most Recently Relevant to Health Maintenance Insurance BCBS OUT OF STATE BCBS OUT OF STATE Care Teams Cnc Specialist Relationship Specialty Start Date End Date No Ref-Primary, Physician PCP - General 02/03/23 Svetlana Morin MD [address] [address] Assigned OBGYN Provider 12/13/21 [facility] [address] [place] [place] [address] Assigned PCP 09/21/23
--- OUTSIDE RECORDS SUMMARY | 2024-04-24 14:39 | XMS_ITS | Clinical Summary ---
Author Organization [place] Address [address] [place] [address] Care Team Providers Care Cook Room Supervisor Name Role Phone Svetlana Morin MD Unavailable No Ref-Primary, Physician Primary Care Provider [facility] Unavailabl e Allergies No known active allergies Medications losartan (COZAAR) 25 MG tabletIndicatio ns:Hypertension Take 50 mg by mouth daily Active hydrochlorothia zide (MICROZIDE) 12.5 MG capsule Take 12.5 mg by mouth daily Active triamcinolone (NASACORT) 55 MCG/ACT nasal aerosol [place] 2 sprays into both nostrils daily Active [...] on file Legal Sex Female 4:51 AM ENERGY MANAGEMENT SPECIALIST Gender Identity Not on file Sexual Orientation [...] 9:20 AM CDT Visit for screening mammogram COLOGUARD([employer]) Routine 01/05/2022 7:55 AM CDT Screen for colon cancer ABSTRACT PAP (HIM EXTERNAL RESULT) Routine 06/08/2019 8:30 AM ENERGY MANAGEMENT SPECIALIST ABSTRACT HPV (HIM EXTERNAL RESULT) Routine 06/08/2019 8:30 AM ENERGY MANAGEMENT SPECIALIST from Last 3 Months or Most Recently [...] There is no radiographic evidence of malignancy. us Svetlana Morin MD IMG MAMMOGRAPHY ORDERABLES Final Result * COLOGUARD([email or web address]) (01/05/2022 7:55 AM CDT) COLOGUARD-ABSTRACT Negative Negative 2021 3:53 AM CDT [facility] (CLIA #:[id number]) Comment: NEGATIVE TEST RESULT. A negative Cologuard [...] (Vale Leon al, N Engl J Med 2014;370(14):5779-9578) The normal value (reference range) for this assay is negative. COLOGUARD RE-SCREENING RECOMMENDATION: Periodic colorectal cancer screening is an important part of preventive healthcare for asymptomatic individuals at average risk for colorectal cancer. Following a negative Cologuard result, the [place] Cancer Society and U.S. Multi-Society Task Force screening guidelines recommend a Cologuard re-screening interval of 3 years. References: [place] Cancer Society Guideline for Colorectal Cancer Screening: https://www.cancer.org/cancer/yedxw-gbyzdg-jzdniw/aqekhlrqy-ifyejadrr-kcejuuh/ac s-rec ommendations.html.; Sim DK, Josefina CR, Daryl MckeonK, Colorectal Cancer Screening: Recommendations for Physicians and Patients from the U.S. Multi-Society Task Force on Colorectal Cancer Screening , Am J Gastroenterology 2017; 112:2111-0325. TEST DESCRIPTION: Composite algorithmic analysis of stool [...] (Vale Leon al, N Engl J Med 2014;370(14):9835-7779.) Cologuard may produce a false negative or false positive result (no colorectal cancer or precancerous polyp present at colonoscopy follow up). A negative Cologuard test result does not guarantee the absence of CRC or advanced adenoma (pre-cancer). The current Cologuard screening interval is every 3 years. ([place] Cancer Society and U.S. Multi-Society Task Force). Cologuard performance data in a 10,000 patient pivotal study using colonoscopy as the reference method can be accessed at the following location: www.[employer]yourdelivery/results. Additional description of the Cologuard test process, warnings and precautions can be found at www.[email or web address] Dogrd.com. Stool specimen (specimen) 01/05/2022 7:55 AM CDT 01/06/2022 2:47 PM CDT us Svetlana Morin MD LABORATORY Final Result Performing Organization Address City[facility] Co de Phone Number [facility] [address] [phone] [facility] (CLIA #:[id number]) [address]vin[address] [place] [address] * Abstract HPV (HIM External Result) (06/08/2019 8:30 AM ENERGY MANAGEMENT SPECIALIST) HPV Abstract See Scanned Document [facility] 06/08/2019 8:30 AM ENERGY MANAGEMENT SPECIALIST Narrative [facility] [employer]-CENTRAL LABORATORY - 06/08/2019 8:30 AM ENERGY MANAGEMENT SPECIALIST See Care Everywhere-[facility] us Provider Outside LAB - HIM EXTERNAL RESULT Final Result [facility] Clandestine DevelopmentCENTRAL LABORATORY [address] * Abstract PAP (HIM External Result) (06/08/2019 8:30 AM ENERGY MANAGEMENT SPECIALIST) PAP-ABSTRACT See Scanned Document [facility] Clandestine DevelopmentCENTRAL LABORATORY 06/08/2019 8:30 AM ENERGY MANAGEMENT SPECIALIST Narrative [facility] Priori Data LABTryton MedicalCENTRAL LABORATORY - 06/08/2019 8:30 AM ENERGY MANAGEMENT SPECIALIST See Care Everywhere-[facility] us Provider Outside LAB - HIM EXTERNAL RESULT Final Result [facility] [employer] LAB-CENTRAL LABORATORY [address] [place] [address], [facility] from Last 3 Months or Most Recently Relevant to Health Maintenance Insurance BCBS OUT OF STATE BCBS OUT OF STATE Care Teams Cook Room Supervisor Relationship Specialty Start Date End Date No Ref-Primary, Physician PCP - General 02/03/23 Svetlana Morin MD [address] [facility] [address] [place] [address] Assigned OBGYN Provider 12/13/21 [facility] [address] [place] [address] Assigned PCP 09/21/23
--- NOTE | 2024-04-24 14:45 | CRLHL7_ITS ---
For Patients: As a result of the Century Cures Act, medical imaging exams and procedure reports are released immediately into your electronic medical record. You may view this report before your referring provider. If you have questions, please contact your health care provider. INDICATION: Dysmenorrhea and menorrhagia COMPARISON: 03/28/2024 TECHNIQUE: 2D espitia scale and color Doppler images were acquired of the pelvis using a transabdominal and transvaginal approach. FINDINGS: Left anterior intramural fibroid measures 1.5 x 1.3 x 1.3 cm. Right posterior intramural fibroid measures 2.4 x 1.5 x 1.7 cm. Uterus measures 9.8 cm in length by 4.3 cm in AP diameter by 5.1 cm in transverse dimension. The endometrial lining measures 11 mm in composite thickness. Nodular echogenic focus associated with the endometrium measuring 10 x 6 x 5 millimeters. No endometrial fluid. The right ovary measures 2.7 x 2.6 x 2.4 cm in size and the left ovary measures 2.5 x 1.4 x 2.5 cm. The ovaries demonstrate normal arterial and venous blood flow on color Doppler analysis. There are no suspicious fluid collections within the cul-de-sac. IMPRESSION: Possible endometrial polyp measuring 1 cm. Intramural fibroids measuring 2.4 cm and 1.5 cm. Dictated by Dominic Yoo MD @ 04/25/2024 11:35:11 AM (Electronically Signed)
== END 2024-04-24 14:36 | disposition home or self-care (01) ==
LOC: US 14:35
PROVIDERS: PCP Family Medicine; Visit Provider Obstetrics & Gynecology
DX: N92.0 Excessive and frequent menstruation with regular cycle (principal); D25.1 Intramural leiomyoma of uterus
CPT/HCPCS: 76830; 76856

== ENCOUNTER 2024-06-08 08:15 | Outpatient (CLI) | payer BC, SELFPAY | END 2024-06-08 08:16 | disposition home or self-care (01) | PROVIDERS: PCP Family Medicine; Visit Provider Family Medicine | DX: I10 Essential (primary) hypertension (principal); R73.03 Prediabetes; K76.0 Fatty (change of) liver, not elsewhere classified; N92.0 Excessive and frequent menstruation with regular cycle; Z01.818 Encounter for other preprocedural examination | CPT/HCPCS: 80053; 82043; 82570; 87086 ==

== ENCOUNTER 2024-06-15 07:19 | Day surgery (SDC) | payer BC, SELFPAY ==
[2024-06-15] VITALS (20 sets, daily range): BP systolic 114–147; BP diastolic 66–98; PULSE 64–101; RESP 14–16; TEMP 36.1–37.6; O2SAT 90–98; BMI 29.6
--- OUTSIDE RECORDS SUMMARY | 2024-06-15 07:23 | XMS_ITS | Clinical Summary ---
Author Organization [place] Address [address] [place] [id number] Care Team Providers Care Broomcorn Sorter Name Role Phone Svetlana Morin MD Unavailable No Ref-Primary, Physician Primary Care Provider [facility] Unavailabl e Allergies No known active allergies Medications losartan (COZAAR) 25 MG tabletIndicatio ns:Hypertension Take 50 mg by mouth daily Active hydrochlorothia zide (MICROZIDE) 12.5 MG capsule Take 12.5 mg by mouth daily Active triamcinolone (NASACORT) 55 MCG/ACT nasal aerosol [place] 2 sprays into both nostrils daily Active [...] on file Legal Sex Female 4:51 AM BIN CLEANER Gender Identity Not on file Sexual Orientation [...] - 19+ 3-dose series) 1993 LIPID 2014 ANNUAL REVIEW OF HM ORDERS 07/10/2023 07/10/2022 COVID-19 Vaccine ( season) 2024 01/06/2022, 05/27/2021, 08/23/2020 INFLUENZA VACCINE (#1) 2024 3, 04/15/2022, 05/14/2021, Additional history exists YEARLY PREVENTIVE VISIT 05/20/2024 05/20/20 23, 02/03/2023, 12/09/2021 PHQ-2 (once per calendar year) 2024 02/03/2023, 02/03/2023, 07/10/2022, Additional history exists HPV TEST 06/08/2024 06/08/2019, 06/08/2019 PAP 06/08/2024 06/08/2019, 01/2020, 06/08/2019, Additional history exists ZOSTER IMMUNIZATION (1 of 2) 2024 DTAP/TDAP/TD IMMUNIZATION (4 - Td or Tdap) 10/03/2024 10/03/2014, 10/03/2014, 04/05/2012 COLORECTAL CANCER SCREENING 01/05/2025 sDNA (Cologuard) 01/05/2025 01/05/2022, 01/05/2022 MAMMO SCREENING 02/03/2025 02/03/2023, 10/05/2021, 10/08/2020 RSV VACCINE (1 - 1-dose 75+ series) 2049 HPV IMMUNIZATION Aged Out No longer e ligible based on patient's age to complete this topic MENINGITIS IMMUNIZATION Aged Out No l onger eligible based on patient's age to complete this topic Pneumococcal Vaccine: Pediatrics (0 to 5 Years) and At-Risk Patients (6 to 49 Years) Aged Out No longer eligible based on patient's age to complete this topic RSV MONOCLONAL ANTIBODY Aged Out No l onger eligible based on patient's age to complete this topic Procedures Procedure Name Priority Date/Time Associated Diagnosis Comments MA SCREENING BILATERAL W/ VIRGILIO Routine 02/03/2023 9:20 AM CDT Visit for screening mammogram COLOGUARD([employer]) Routine 01/05/2022 7:55 AM CDT Screen for colon cancer ABSTRACT PAP (HIM EXTERNAL RESULT) Routine 06/08/2019 8:30 AM BIN CLEANER ABSTRACT HPV (HIM EXTERNAL RESULT) Routine 06/08/2019 8:30 AM BIN CLEANER from Last 3 Months or Most Recently [...] MD IM MAMMOGRAPHY ORDERABLES Final Result * COLOGUARD(Favor) (01/05/2022 7:55 AM CDT) COLOGUARD-ABSTRACT Negative Negative 2021 3:53 AM CDT [facility] (CLIA #:[id number]) Comment: NEGATIVE TEST RESULT. A negative Cologuard [...] (Vale Leon al, N Engl J Med 2014;370(14):1208-2463) The normal value (reference range) for this assay is negative. COLOGUARD RE-SCREENING RECOMMENDATION: Periodic colorectal cancer screening is an important part of preventive healthcare for asymptomatic individuals at average risk for colorectal cancer. Following a negative Cologuard result, the [place] Cancer Society and U.S. Multi-Society Task Force screening guidelines recommend a Cologuard re-screening interval of 3 years. References: [place] Cancer Society Guideline for Colorectal Cancer Screening: https://www.cancer.org/cancer/kfdlx-jveocj-wrrvem/yudyplkvy-vvqrgxpsa-tcmjhxi/ac s-rec ommendations.html.; Sim DK, Josefina PAZ, Daryl MckeonK, Colorectal Cancer Screening: Recommendations for Physicians and Patients from the U.S. Multi-Society Task Force on Colorectal Cancer Screening , Am J Gastroenterology 2017; 112:8282-5972. TEST DESCRIPTION: Composite algorithmic analysis of stool [...] colonoscopy. (Vale Durán, N Engl J Med 2014;370(14):0795-9341.) Cologuard may produce a false negative or false positive result (no colorectal cancer or precancerous polyp present at colonoscopy follow up). A negative Cologuard test result does not guarantee the absence of CRC or advanced adenoma (pre-cancer). The current Cologuard screening interval is every 3 years. ([place] Cancer Society and U.S. Multi-Society Task Force). Cologuard performance data in a 10,000 patient pivotal study using colonoscopy as the reference method can be accessed at the following location: www.[employer]/results. Additional description of the Cologuard test process, warnings and precautions can be found at www.[employer] S.Ard.com. Stool specimen (specimen) 01/05/2022 7:55 AM CDT 01/06/2022 2:47 PM CDT Svetlana Morin MD LABORATORY Final Result Performing Organization Address City/[facility] Co de Phone Number [facility] [address] [phone] [facility] (CLIA #:[id number]) [address] [place] [address] * Abstract HPV (HIM External Result) (06/08/2019 8:30 AM BIN CLEANER) HPV Abstract See Scanned Document [facility] [employer] [facility] LABORAT[facility] 06/08/2019 8:30 AM BIN CLEANER Narrative [facility] - 06/08/2019 8:30 AM BIN CLEANER See Care Everywhere-[facility] us Provider Outside LAB - HIM EXTERNAL RESULT Final Result Performing Organization Address City/[facility]/ZIP Co de Phone Number [facility] Holdings[facility]TR[facility] [address] * Abstract PAP (HIM External Result) (06/08/2019 8:30 AM BIN CLEANER) PAP-ABSTRACT See Scanned Document [facility] [facility] 06/08/2019 8:30 AM BIN CLEANER Narrative [facility] [employer] [facility] - 06/08/2019 8:30 AM BIN CLEANER See Care Everywhere-[facility] us Provider Outside LAB - HIM EXTERNAL RESULT Final Result [employer] LAB-CENTRAL LABORATORY [address] [place] [address], [facility] from Last 3 Months or Most Recently Relevant to Health Maintenance Insurance BCBS OUT OF STATE BCBS OUT OF STATE Care Teams Broomcorn Sorter Relationship Specialty Start Date End Date No Ref-Primary, Physician PCP - General 02/03/23 Svetlana Morin MD [address] [facility] [address] [place] [address] Assigned OBGYN Provider 12/13/21 [facility] [address] [place] [address] Assigned PCP 09/21/23
--- OUTSIDE RECORDS SUMMARY | 2024-06-15 07:23 | XMS_ITS | Referral Summary ---
Author Organization [place] Address [address] [place] [address] Care Team Providers Care Hotel Front Desk Clerk Name Role Phone Svetlana Morin MD Unavailable No Ref-Primary, Physician Primary Care Provider [facility] Unavailabl e Allergies No known active allergies Medications losartan (COZAAR) 25 MG tabletIndicatio ns:Hypertension Take 50 mg by mouth daily Active hydrochlorothia zide (MICROZIDE) 12.5 MG capsule Take 12.5 mg by mouth daily Active triamcinolone (NASACORT) 55 MCG/ACT nasal aerosol [place] 2 sprays into both nostrils daily Active [...] on file Legal Sex Female 4:51 AM INSULATION CUTTER Gender Identity Not on file Sexual Orientation [...] (HIM EXTERNAL RESULT) Routine 06/08/2019 8:30 AM INSULATION CUTTER ABSTRACT HPV (HIM EXTERNAL RESULT) Routine 06/08/2019 8:30 AM INSULATION CUTTER from Last 3 Months or Most Recently [...] MD IMG MAMMOGRAPHY ORDERABLES Final Result * COLOGUARD(Endpoint Clinical) (01/05/2022 7:55 AM CDT) COLOGUARD-ABSTRACT Negative Negative 2021 3:53 AM CDT [facility] (CLIA #:[id number]) Comment: NEGATIVE TEST RESULT. A negative Cologuard [...] colonoscopy. (Vale Durán, N Engl J Med 2014;370(14):3545-4019) The normal value (reference range) for this assay is negative. COLOGUARD RE-SCREENING RECOMMENDATION: Periodic colorectal cancer screening is an important part of preventive healthcare for asymptomatic individuals at average risk for colorectal cancer. Following a negative Cologuard result, the [place] Cancer Society and U.S. Multi-Society Task Force screening guidelines recommend a Cologuard re-screening interval of 3 years. References: [place] Cancer Society Guideline for Colorectal Cancer Screening: https://www.cancer.org/cancer/qzgmk-awemjc-gkfdyq/fqplwxlsb-hashvmnqj-mwmqjph/ac s-rec ommendations.html.; Sim DK, Josefina PAZ, Daryl MckeonK, Colorectal Cancer Screening: Recommendations for Physicians and Patients from the U.S. Multi-Society Task Force on Colorectal Cancer Screening , Am J Gastroenterology 2017; 112:9177-1784. TEST DESCRIPTION: Composite algorithmic analysis of stool [...] Bentley et al, N Engl J Med 2014;370(14):8129-8672.) Cologuard may produce a false negative or false positive result (no colorectal cancer or precancerous polyp present at colonoscopy follow up). A negative Cologuard test result does not guarantee the absence of CRC or advanced adenoma (pre-cancer). The current Cologuard screening interval is every 3 years. ([place] Cancer Society and U.S. Multi-Society Task Force). Cologuard performance data in a 10,000 patient pivotal study using colonoscopy as the reference method can be accessed at the following location: www.[employer]/results. Additional description of the Cologuard test process, warnings and precautions can be found at www.cologuard.com. Stool specimen (specimen) 01/05/2022 7:55 AM CDT 01/06/2022 2:47 PM CDT us Svetlana Morin MD LABORATORY Final Result Performing Organization Address City/[facility]/ZIP Co de Phone Number [facility] [address] [employer] [address] [phone] [facility] (CLIA #:[id number]) [address] [place] [address] * Abstract HPV (HIM External Result) (06/08/2019 8:30 AM INSULATION CUTTER) HPV Abstract See Scanned Document [facility] 06/08/2019 8:30 AM INSULATION CUTTER Narrative [facility] [employer], LLCCENTRAL LABORATORY - 06/08/2019 8:30 AM INSULATION CUTTER See Care Everywhere-[facility] us Provider Outside LAB - HIM EXTERNAL RESULT Final Result Performing Organization Address [facility]/ZIP Co de Phone Number [facility] [employer] [facility] LL[facility] [address] * Abstract PAP (HIM External Result) (06/08/2019 8:30 AM INSULATION CUTTER) PAP-ABSTRACT See Scanned Document [facility] 06/08/2019 8:30 AM INSULATION CUTTER Narrative [facility] [employer] [facility], LL[facility]TRAL LABORATORY - 06/08/2019 8:30 AM INSULATION CUTTER See Care Everywhere-[facility] us Provider Outside LAB - HIM EXTERNAL RESULT Final Result Performing Organization Address City/[facility]/ZIP Co de Phone Number [facility] [address] from Last 3 Months or Most Recently Relevant to Health Maintenance Insurance BCBS OUT OF STATE BCBS OUT OF STATE Care Teams Hotel Front Desk Clerk Relationship Specialty Start Date End Date No Ref-Primary, Physician PCP - General 02/03/23 Svetlana Morin MD [address] [address] Assigned OBGYN Provider 12/13/21 [facility] [address] [place] [address] Assigned PCP 09/21/23
--- OUTSIDE RECORDS SUMMARY | 2024-06-15 07:23 | XMS_ITS | Continuity of Care Document ---
Author Name NwHIN User [id number] llowed Address Unknown Organization Unknown Address Unknown Procedures FILTER APPLIED:Only known Procedures with Onset Date within the last 5 years Procedure Date Procedure Provider Additiona l Information Status ASSAY OF URINE CREATININE (49269) Completed UR ALBUMIN QUANTITATIVE (19718) Completed LIPID PANEL (30570) Comp leted ASSAY OF PROTEIN URINE (42019) Completed COMPREHEN METABOLIC PANEL (08424) Completed NC HYSTEROSCOPY W ENDOMETRIAL BX/POLYPECTOMY W/WO D (82413) Completed Encounters FILTER APPLIED:Only known Encounters with Admission Date within the last 5 years Encounter Location Admission Discharge Billing Code [facility] [place] [facility] Outpatient Manasa Hurtado
[2024-06-15] MEDS: SODIUM CHLORIDE 0.9 % (FLUSH) 10 ML SYRINGE IVF (07:30)
[2024-06-15] MEDS: SCOPOLAMINE 1 MG/3 DAY PATCH 1 PATCH TRANSDERMA (07:50)
[2024-06-15] MEDS: ACETAMINOPHEN 500 MG TABLET 1000 MG PO (07:50)
[2024-06-15] MEDS: GABAPENTIN 600 MG TABLET PO (07:50)
[2024-06-15] MEDS: LACTATED RINGERS 1000 ML 1,000 ML 100 ML IV (07:50)
[2024-06-15 07:53] LABS: Ur HCG Qualitative* Negative (Negative)
[2024-06-15 07:59] LABS: Hemoglobin* 14.7 gm/dL (12.0-16.0)
--- NOTE | 2024-06-15 08:57 | W.PM.H&PU ---
History & Physical Update History & Physical Update H&P Reviewed and patient assessed: No changes noted
--- NOTE | 2024-06-15 08:57 | PM.PROC ---
Procedure Note Date Seen: 06/15/24 Date of procedure: 06/15/24 Will [facility] bill your pro fee for this procedure?: Yes Procedure: Preoperative diagnosis: 48-year-old 5 para 2031 with uterine fibroids and menorrhagia who desires definitive treatment Postoperative diagnosis: Same Procedure: Total laparoscopic hysterectomy, Bilateral salpingo oophorectomy, diagnostic cystoscopy. Anesthesia: General endotracheal, local Surgeon: Linsey Caceres MD Assist: Taylor Fiore MD Estimated blood loss: 100 mL. IV Fluid: 950 mL Urine output: 100 mL clear urine at the end of the procedure Drains: Barry to gravity Specimen: Uterus the, bilateral fallopian tubes the and bilateral ovaries to pathology. Findings: On exam under anesthesia: The uterus was anteverted, approximately 10 week size, mobile without nodularity or masses palpable. Adnexa without mass or fullness palpable. On laparoscopy: multiple <1 cm fibroids in the uterus, where the normal fallopian tubes and ovaries. The liver and gallbladder appeared normal. Appendix is surgically absent. Procedure: Terri was taken to the operating room where general anesthetic was found to be adequate. She was placed in the dorsal lithotomy position and an exam under anesthesia was performed with findings stated above. She was then prepped and draped in a normal sterile manner. A Barry catheter was placed. A bivalve speculum was placed in the vaginal canal. A long Allis clamp was placed on the anterior lip of the cervix, in the uterus sounded to 10 cm. A extra large VCare uterine manipulator was then placed. The Allis clamp and speculum were removed from the cervix. Attention was then turned to performing the laparoscopic portion of the procedure. All incisions were infiltrated with 0.5% Marcaine prior to incising the skin. A vertical, infraumbilical 1 cm incision was made. An 11 mm trocar was then placed under direct visualization. The abdomen was then insufflated with CO2 gas to a pressure of 15 mm of mercury. Two, pelvic ports were then placed approximately 3-4 finger breaths medial to the ischial crests. The trocar in the RLQ = 5mm, LLQ = 5mm. These were placed under direct visualization. Attention was then turned to performing the hysterectomy. Both ureters were visualized in the normal position bilaterally. The left fallopian tube was grasped and and the infundibulopelvic ligament identified., LigaSure dissecting forceps the was used to ligate the IP ligament. Sequential follicles were then form toward and through the round the ligament. The left side of the hysterectomy was performed using the LigaSure dissecting forceps. The 1st pedicles were starting with the broad ligament that was cauterized and and bisected. In sequence show pedicles were formed to divide the utero-ovarian ligament. Then sequential pedicles were made through the broad ligament. The posterior leaf of the broad ligament was then divided and sequential pedicles carried down to the level of the VCare cup. The anterior leaf of the broad ligament was then divided down to the level of the anterior aspect of the VCare cup and a bladder flap created. The uterine vessels were then skeletonized. The uterine vessels were then cauterized and divided. Then excess tissue was cleared over the top of the VCare cup using the dissecting forceps. The right salpingo oophorectomy and right side of the hysterectomy were then performed in a similar manner. The Ligasure Valleylab pen with the spatula attachment was then used to perform the colpotomy incising around the VCare cup. The uterus was removed and the fundus placed in the vaginal canal to maintain insufflation. The vaginal cuff was then reapproximated using 2-0 V lock suture in a running manner. All the pedicles and vaginal cuff were then closely visualized and hemostasis obtained with bipolar cautery using the LigaSure dissecting forceps or the Valleylab pen with the spatula. The the uterus, fallopian tubes and ovaries were removed from the vaginal canal and sent to pathology. The Barry catheter was briefly removed. A diagnostic cystoscopy was performed using normal saline as the insufflation medium. The dome of the bladder was noted to be without injury and no evidence of any sutures from the vaginal cuff causing injury. Normal urine flow was noted through both ureteral orifices. Fluorescein IV was used to visualize the urine more easily. The Barry catheter was then replaced. Attention was then returned to the abdomen where hemostasis was verified. Angela was applied to the vaginal cuff. The CO2 pressure decreased to 5mmHG and hemostasis verified. This was closed under direct visualization with the laparoscope. The fascia in the umbilical incision was reapproximated using 0 Vicryl on a UR 6 needle. All trocars were removed under direct visualization. CO2 gas was allowed to escape the infraumbilical port prior to its removal. All skin incisions were re-approximated using 4-0 Monocryl in a running subcuticular manner, Exofin skin adhesive gel and adhesive bandages placed. The patient tolerated this procedure well. Sponge, lap and instrument counts were correct x2 at the end of the procedure and the patient was taken to the recovery area in stable condition. The barry catheter was removed prior to awakening the patient from anesthesia. The patient received 2gm IV ancef prior to the start of the procedure. she received 30 mg IV Toradol and 1000 mg IV Tylenol at the end of the procedure. Anesthesia: GETA and local Condominium Manager: Taylor Echavarria Pathology: specimen obtained, sent to pathology
[2024-06-15] MEDS: CEFAZOLIN 2 GM INJ IVP (09:17)
[2024-06-15] MEDS: BUPIVACAINE 0.5% 30 ML INJECTION (09:27)
--- NOTE | 2024-06-15 10:11 | P.NB_ITS ---
Nerve Block Nerve Block Time Seen by Provider: 09:00 Date Seen: 06/15/24 Type of block requested by surgeon for post-operative analgesia: TAP Side: bilateral Time out performed: Yes Verification of patient name: Yes Verification of date of : Yes Site marking: site marked Name of person performing procedure: Tee Continuous monitoring Was continuous monitoring of O2 sat, B/P, quality assurance monitor body, recorded every 15 minutes?: Yes Procedure Checklist: sterile prep, needles and gloves Ultrasound guided. Images saved: Yes Medications given in 5ml increments after negative aspiration: Marcaine %: 0.25 mL: 30 Needle gauge: 20 and Exparel mL: 10 Patient tolerated procedure well: Yes Additional comments: Needle noted between internal oblique and transversus abdominus. Local spread visualized Block Charges Block Charge (with Pro Fee): TAP Bilateral Use of Ultrasound Machine for Block: Yes- US Guidance/pain block
--- NOTE | 2024-06-15 10:12 | P.ANES_ITS ---
Anesthesia Charges Start Date/Time Anesthesia Start Date: 06/15/24 Anesthesia Start Time: 08:50 Stop Date/Time Anesthesia Stop Date: 06/15/24 Anesthesia Stop Time: 10:57 Coding CPT Codes CPT Codes: ANESTH SURG LOWER ABDOMEN - 28896 ([id number]) P2 - PATIENT W/MILD SYST DISEASE, QK - WASH HOUSE WORKER 2-4 CNCRNT ANES PROC, QX - GALLERY OR MUSEUM CURATOR SVC W/ MD MED DIRECTION
--- NOTE | 2024-06-15 10:12 | W.ANESCHARGE ---
Anesthesia Charges Start Date/Time Anesthesia Start Date: 06/15/24 Anesthesia Start Time: 08:50 Stop Date/Time Anesthesia Stop Date: 06/15/24 Anesthesia Stop Time: 10:57 Coding CPT Codes CPT Codes: ANESTH SURG LOWER ABDOMEN - 60282 ([id number]) P2 - PATIENT W/MILD SYST DISEASE, QK - EDGER FEEDER 2-4 CNCRNT ANES PROC, QX - SENIOR ADVISORY SVC W/ MD MED DIRECTION
--- NOTE | 2024-06-15 10:58 | P.ANES_ITS ---
Anesthesia Charges Start Date/Time Anesthesia Start Date: 06/15/24 Anesthesia Start Time: 08:50 Stop Date/Time Anesthesia Stop Date: 06/15/24 Anesthesia Stop Time: 10:57 Coding CPT Codes CPT Codes: ANESTH SURG LOWER ABDOMEN - 51431 ([id number]) P2 - PATIENT W/MILD SYST DISEASE, QK - BRAND AMBASSADOR PROMOTIONAL MODEL 2-4 CNCRNT ANES PROC, QX - CORNCOB PIPE SUPERVISOR SVC W/ MD MED DIRECTION
--- NOTE | 2024-06-15 10:58 | W.ANESCHARGE ---
Anesthesia Charges Start Date/Time Anesthesia Start Date: 06/15/24 Anesthesia Start Time: 08:50 Stop Date/Time Anesthesia Stop Date: 06/15/24 Anesthesia Stop Time: 10:57 Coding CPT Codes CPT Codes: ANESTH SURG LOWER ABDOMEN - 06503 ([id number]) P2 - PATIENT W/MILD SYST DISEASE, QK - PRIVATE INVESTIGATOR SURVEILLANCE 2-4 CNCRNT ANES PROC, QX - OPERATING ROOM TECHNOLOGIST SVC W/ MD MED DIRECTION
[2024-06-15] MEDS: 0.9 % SODIUM CHLORIDE 500 ML 500 ML 100 ML IV (12:13)
--- NOTE | 2024-06-15 16:24 | P.GYNPN_ITS ---
INSURANCE BUSINESS ANALYST - A/P Assessment and plan (1) Status post laparoscopic hysterectomy: Problem details: w/ bilateral salpingo-oophorectomy Status: Acute Plan 1. Postoperative day 0 from a scheduled total laparoscopic hysterectomy with bilateral salpingo oophorectomy. Planning same-day discharge. 2. The patient was able to urinate without difficulty. 3. She is tolerating a regular diet without nausea or vomiting. 4. She is ambulating without problems. 5. Her pain is well controlled with oral pain medication. Postoperative Procedures: Procedures Operation Date: 06/15/24 08:30 Actual Procedure Side Surgeon p SDC-Total Laparoscopic Hysterectomy, Bilateral Salpingectomy, bilateral Oophorectomy, Diagnostic Cystoscopy Linsey Caceres MD Postoperative day: 0 Postoperative status: doing well Postoperative plan: advance diet and discharge Time Spent With Patient Time: Total time spent is greater than 50% in coordination of care (as documented) at patient's floor/unit and/or counseling patient: Time with patient: 25 - 35 minutes INSURANCE BUSINESS ANALYST- PN:Subj Post-Op Subjective Time Seen by Provider: 16:24 Date Seen: 06/15/24 Post Operative Details: Post-operative day number 0: status post TLH/BSO/diagnostic cystoscopy to treat uterine fibroids and menorrhagia. Subjective: patient has no complaints, patient reports feeling better, pain is well controlled, ambulating well, voiding without difficulty, patient is tolerating oral intake and patient desires discharge INSURANCE BUSINESS ANALYST-PN: Obj Exam Physical Exam: Vital signs: Temp Pulse Resp BP Pulse Ox O2 Del Method O2 Flow Rate 97 F L 89 16 136/89 95 Room Air 1 06/15/24 11:30 06/15/24 15:30 06/15/24 15:30 06/15/24 14:30 06/15/24 15:30 06/15/24 15:30 06/15/24 14:00 Narrative: General: Pleasant, , well groomed woman in no acute distress. Vital signs: Included in her electronic medical record. Heart: Regular rate and rhythm without gallop, rub or murmur. Chest: Clear to auscultation bilaterally. Abdomen: Soft, nontender, nondistended with normal bowel sounds throughout. No CVA or flank tenderness. Incisions: All clean, dry and intact with sutures and skin adhesive gel. Extremities: No pain or edema. INSURANCE BUSINESS ANALYST - PN: Obj Data Labs Labs: Laboratory Results - last 24 hr 06/15/24 06/15/24 07:43 Unknown Hgb 14.7 Urine HCG, Qual Negative Blood Type A Positive Antibody Screen NEGATIVE
== END 2024-06-15 16:48 | disposition home or self-care (01) ==
LOC: OR 07:21
PROVIDERS: PCP Family Medicine; Visit Provider Obstetrics & Gynecology
PROC: 0UT94ZZ Resection of Uterus, Percutaneous Endoscopic Approach (ICD-10-PCS; CPT 58571; principal; 2024-06-15 08:30)
DX: N92.0 Excessive and frequent menstruation with regular cycle (principal); D25.9 Leiomyoma of uterus, unspecified; N83.12 Corpus luteum cyst of left ovary; G89.18 Other acute postprocedural pain
CPT/HCPCS: 58571; 00840; 36415; 64488; 76942; 81025; 85018; 86850; 86900; 86901; 88307; A4314; A9270; J0330; J0665; J0666; J0690; J1100; J1630; J1885; J2405; J2704; J3010; J3475; J3490; J7030; J7120

== ENCOUNTER 2025-04-04 18:46 | Outpatient (CLI) | payer BC, SELFPAY | END 2025-04-04 18:47 | disposition home or self-care (01) | LOC: NFLDREF 04-09 03:15 | PROVIDERS: PCP Family Medicine; Referring Provider Family Medicine; Visit Provider Physician Assistant | DX: N30.01 Acute cystitis with hematuria (principal) | CPT/HCPCS: 87086 ==

== ENCOUNTER 2025-04-10 15:03 | Outpatient (CLI) | payer BC, SELFPAY ==
--- NOTE | 2025-04-10 15:20 | CRLHL7_ITS ---
For Patients: As a result of the Century Cures Act, medical imaging exams and procedure reports are released immediately into your electronic medical record. You may view this report before your referring provider. If you have questions, please contact your health care provider. INDICATION: BILATERAL SCREENING MAMMOGRAM, ASYMPTOMATIC 49 Y/O FEMALE COMPARISON: 02/09/2024, 12/08/2021, 10/08/2020 TECHNIQUE: Digital mammogram in CC and MLO projections including computer-aided detection (CAD) and tomosynthesis. BREAST COMPOSITION: The breasts are heterogeneously dense, which may obscure small masses. FINDINGS: No suspicious findings. ASSESSMENT: BI-RADS 1 Negative RECOMMENDATION: Annual screening mammogram. A lay language report of this examination will be provided to the patient. Dictated by: Dominic Yoo MD @ 04/11/2025 09:04:55 (Electronically Signed)
== END 2025-04-10 15:04 | disposition home or self-care (01) ==
LOC: MAMMO 15:04
PROVIDERS: PCP Family Medicine; Visit Provider Family Medicine
DX: Z12.31 Encounter for screening mammogram for malignant neoplasm of breast (principal); R92.333 Mammographic heterogeneous density, bilateral breasts
CPT/HCPCS: 77063; 77067

== ENCOUNTER 2025-04-23 12:25 | Outpatient (CLI) | payer BC, SELFPAY | END 2025-04-23 12:26 | disposition home or self-care (01) | PROVIDERS: PCP Family Medicine; Visit Provider Family Medicine | DX: I10 Essential (primary) hypertension (principal); R73.03 Prediabetes | CPT/HCPCS: 80053; 80061; 82043; 82570; 87086 ==

== ENCOUNTER 2025-04-27 10:43 | Outpatient (CLI) | payer BC, SELFPAY ==
--- NOTE | 2025-04-27 11:00 | CRLHL7_ITS ---
For Patients: As a result of the Century Cures Act, medical imaging exams and procedure reports are released immediately into your electronic medical record. You may view this report before your referring provider. If you have questions, please contact your health care provider. INDICATION: Follow-up kidney stones. TECHNIQUE: CT abdomen and pelvis without contrast. COMPARISON: Renal ultrasound dated 03/28/2024. FINDINGS: Evaluation of solid organs is limited secondary to lack of IV contrast administration. Liver: Diffuse hepatic steatosis. Gallbladder and bile ducts: Unremarkable. Pancreas: Unremarkable. Spleen: Unremarkable. Adrenal glands: Unremarkable. Kidneys: Very subtle punctate bilateral nonobstructing renal calculi. No hydronephrosis bilaterally. Retroperitoneum: No lymphadenopathy. Bowel and mesentery: Bowel is not obstructed. No significant ascites. Bladder: Unremarkable for degree of distention. Reproductive organs: Post hysterectomy. Pelvic lymph nodes: No lymphadenopathy. Vessels: Unremarkable for unenhanced study. Abdominal wall: No acute abdominal wall abnormality. Bones: Multilevel degenerative changes of the spine. Bones are osteopenic. Dense punctate sclerotic lesions in the T12 and L3 vertebral bodies, new since 10/19/2013, may reflect bone islands in the absence of a known malignancy. Lower chest: No focal consolidation. IMPRESSION: 1. Very subtle punctate bilateral nonobstructing renal calculi. No hydronephrosis bilaterally. 2. Diffuse hepatic steatosis. 3. New dense punctate sclerotic lesions in the T12 and L3 vertebral bodies, likely reflective of bone islands in the absence of a known malignancy. Please note that all CT scans at this facility use dose modulation, iterative reconstruction, and/or weight-based dosing when appropriate to reduce radiation dose to as low as reasonably achievable. Dictated by Myriam Curtis MD @ 04/27/2025 5:15:28 PM (Electronically Signed)
== END 2025-04-27 10:44 | disposition home or self-care (01) ==
LOC: CT 10:44
PROVIDERS: PCP Family Medicine; Visit Provider Family Medicine
DX: N20.0 Calculus of kidney (principal); K76.0 Fatty (change of) liver, not elsewhere classified; M89.8X9 Other specified disorders of bone, unspecified site; M85.80 Other specified disorders of bone density and structure, unspecified site
CPT/HCPCS: 74176